=== PATIENT | female | born 1955 | race Caucasian/White ===

== ENCOUNTER 2023-01-29 06:15 | Day surgery (SDC) | payer OTHER ==
[2023-01-29] MEDS ORDERED: Ringers Lactate 1,000 ML IV ONE (06:48)
[2023-01-29] MEDS ORDERED: LIDOCAINE 1% MPF 5 ML VIAL ONE (08:23)
[2023-01-29] MEDS ORDERED: propofoL 200 MG/20 ML VIAL IV ONE (08:24)
[2023-01-29 11:26] VITALS: BP 117/72; TEMP 97.9; O2SAT 99
--- NOTE | 2023-01-30 13:32 | EKG ---
Test Date: 2023-01-29 Test Time: 07:53:30 [employer]: KRYSTIN MEASUREMENT RESULTS: Intervals: Rate: 91 MS: QRSD: 106 QT: 358 QTc: 440 [place]: P: MS: QRS: 245 T: 140 INTERPRETIVE STATEMENTS: Atrial fibrillation Right superior axis deviation ST & T wave abnormality, consider lateral ischemia or digitalis effect Abnormal ECG No previous ECG available for comparison Electronically Signed On 01-30-23 13:27:21 MYCOLOGIST by Lonnie Cadet
== END 2023-01-29 10:15 | disposition home or self-care (01) ==
LOC: OR 06:15
PROVIDERS: ATTEND Surgery
PROC: 0DBL8ZX Excision of Transverse Colon, Via Natural or Artificial Opening Endoscopic, Diagnostic (ICD-10-PCS; 2023-01-29)
PROC: 0DBM8ZX Excision of Descending Colon, Via Natural or Artificial Opening Endoscopic, Diagnostic (ICD-10-PCS; principal; 2023-01-29 08:30)
DX: K92.2 Gastrointestinal hemorrhage, unspecified (principal); D12.4 Benign neoplasm of descending colon; D12.3 Benign neoplasm of transverse colon; K57.30 Diverticulosis of large intestine without perforation or abscess without bleeding; D50.0 Iron deficiency anemia secondary to blood loss (chronic); K64.8 Other hemorrhoids; K64.4 Residual hemorrhoidal skin tags; I10 Essential (primary) hypertension; I48.91 Unspecified atrial fibrillation; F32.A Depression, unspecified; E66.9 Obesity, unspecified; Z68.31 Body mass index [BMI] 31.0-31.9, adult; Z79.01 Long term (current) use of anticoagulants
CPT/HCPCS: 93005; 36415; 80162; 88305; 45384; J2704; J2001; J7120

== ENCOUNTER → 2023-02-24 | Emergency (ER) | payer OTHER ==
--- OUTSIDE RECORDS SUMMARY | 2023-02-24 12:29 | XMS REPORT | Continuity of Care Document ---
Author Name Unknown Address [address] [place] [address] [facility] thconnect Address 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 Name Role Phone Mata Pan DO Primary Care Physician [phone] LUIS E DARBY Attending Clinician Unavailable Doctor Unassigned, [place] Attending Clinician U nicole Tinsley RN, Nini Macario Attending Clinician Unavailab JAMEEL Hayward Attending Clinician Unavailable JAMEEL LEWIS Attending Clinician Unavailable Drea REYES, Yehuda Attending Clinician [phone] Jaylan REYES, Krista Attending Clinician [phone] Diana Rodriguez MD Attending Clinician [phone] Alexandr Stoddard MD Attending Clinician [phone] ZEE POLANCO Attending Clinician Unavailabigail e (TECH), ANG-DB EMG/NCV TESTING Attending Clinici an Unavailable Zee Polanco MD Attending Clinician [phone] Jos Attending Clinician Unavailable DIANA RODRIGUEZ Admitting Clinician Unavailable Diana Rodriguez MD Admitting Clinician [phone] ZEE POLANCO Admitting Clinician Unavailabigail Arguello Admitting Clinician Unavailable Payers Payer Name Policy Type Policy Number Effective Date Expirati on Date Source OTHER CI [id number] MEDICARE PART A \\T\\ B [id number] 2021 00:00:00 [employer] TRADITIONAL [id number] 2021 00:00:00 Problems Condition Name Condition Details Condition Category Status Onset Date Resolution Date Last Treatment Date Treating Clinician Comments Source Hematochez ia Hematochez ia Disease Active 2022-02 0- 00:00: 00 [facility] Chronic diastolic heart failure Chronic diastolic heart failure Disease Active 3 00:00: 00 [facility] Benign hypertensi ve heart disease with heart failure(40 2.11) Benign hypertensi ve heart disease with heart failure(40 2.11) Disease Active 2020-02 2 00:00: 00 [facility] Generalize d anxiety disorder Generalize d anxiety disorder Disease Active 06 00:00: 00 [facility] Anemia of chronic disease Anemia of chronic disease Disease Active 03-12 00:00: 00 [facility] Aneurysm of thoracic aorta Aneurysm of thoracic aorta Disease Active 03-12 00:00: 00 [facility] Bicuspid aortic valve Bicuspid aortic valve Disease Active 03-12 00:00: 00 [facility] 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 Active 03-12 00:00: 00 [facility] Iron deficiency Iron deficiency Disease Active 03-12 00:00: 00 [facility] Mixed hyperlipid emia Mixed hyperlipid emia Disease Active 03-12 00:00: 00 [facility] Other persistent atrial fibrillati on Other persistent atrial fibrillati on Disease Active 03-12 00:00: 00 [facility] No known active problems No known active problems Disease [facility] Allergies, Adverse Reactions, Alerts Allergy Name Allergy Type Status Severity Reaction(s) Onset Date Inactive Date Treating Clinician Comments Source IODINE DRUG INGREDI Active Swelling 2020-02 00:00: 00 [facility] Iodine Propensi ty to adverse reaction s Active Swelling 2020-02 00:00: 00 [facility] Social History Social Habit Start Date Stop Date Quantity Comments [facility] 2022-12-07 00:00:00 2022-12-07 00:00:00 [facility] Sex Assigned At 1955 00:00:00 1955 00:00:00 [facility] Smoking Status Start Date Stop Date Source Tobacco smoking consumption unknown [facility] Medications Ordered Medication Name Filled Medication Name Start Date Stop Date Current Medication? Ordering Clinician Indication Dosage Frequency Signature (SIG) Comments Components Source rivaroxaban (XARELTO) tablet 20 mg 2022-02 14:00: 00 Yes 20mg 20 mg, Oral, DAILY, First dose on 12/10/22 at 0900, Until Discontinu ed, [facility] 81 mg 2022-02 14:00: 00 Yes 81mg 81 mg, Oral, DAILY, First dose on 12/10/22 at 0900, Until Discontinu ed, Routine [facility] rivaroxaban (XARELTO) tablet 20 mg 2022-02 14:00: 00 12-10 20:08 :32 No 20mg 20 mg, Oral, DAILY, First dose on 12/10/22 at 0900, Until Discontinu ed, Routine [facility] che[facility] 81 mg 2022-02 14:00: 00 12-10 20:08 :32 No 81mg 81 mg, Oral, DAILY, First dose on 12/10/22 at 0900, Until Discontinu ed, Routine [facility] aspirin 81 mg chewable tablet 2022-02 13:08: 30 Yes 81mg Take 1 tablet by mouth in the morning. [facility] rivaroxaban (XARELTO) 20 mg tablet 2022-02 13:08: 30 Yes 20mg Take 1 tablet by mouth in the morning. [facility] carvedilol (COREG ORAL) 2022-02 13:08: 30 Yes 20mg Take 20 mg by mouth in the morning and 20 mg in the evening. [facility] FA/mv,Ca,ir on,min/lyco pene/lut (MULTIVITAL ORAL) 2022-02 13:08: 30 Yes 1{tbl} Take 1 tablet by mouth in the morning. [facility] digoxin 250 mcg (0.25 mg) tablet 2022-02 13:08: 30 Yes .25mg Take 1 tablet by mouth in the morning. [facility] aspirin 81 mg chewable tablet 2022-02 13:08: 30 Yes 81mg Take 1 tablet by mouth in the morning. [facility] rivaroxaban (XARELTO) 20 mg tablet 2022-02 13:08: 30 Yes 20mg Take 1 tablet by mouth in the morning. [facility] carvedilol (COREG ORAL) 2022-02 13:08: 30 Yes 20mg Take 20 mg by mouth in the morning and 20 mg in the evening. [facility] FA/mv,Ca,ir on,min/lyco pene/lut (MULTIVITAL ORAL) 2022-02 13:08: 30 Yes 1{tbl} Take 1 tablet by mouth in the morning. [facility] digoxin 250 mcg (0.25 mg) tablet 2022-02 13:08: 30 Yes .25mg Take 1 tablet by mouth in the morning. [facility] aspirin 81 mg chewable tablet 2022-02 13:08: 30 Yes 81mg Take 1 tablet by mouth in the morning. [facility] rivaroxaban (XARELTO) 20 mg tablet 2022-02 13:08: 30 Yes 20mg Take 1 tablet by mouth in the morning. [facility] carvedilol (COREG ORAL) 2022-02 13:08: 30 Yes 20mg Take 20 mg by mouth in the morning and 20 mg in the evening. [facility] FA/mv,Ca,ir on,min/lyco pene/lut (MULTIVITAL ORAL) 2022-02 13:08: 30 Yes 1{tbl} Take 1 tablet by mouth in the morning. [facility] digoxin 250 mcg (0.25 mg) tablet 2022-02 13:08: 30 Yes .25mg Take 1 tablet by mouth in the morning. [facility] aspirin 81 mg chewable tablet 2022-02 13:08: 30 Yes 81mg Take 1 tablet by mouth in the morning. [facility] rivaroxaban (XARELTO) 20 mg tablet 2022-02 13:08: 30 Yes 20mg Take 1 tablet by mouth in the morning. [facility] carvedilol (COREG ORAL) 2022-02 13:08: 30 Yes 20mg Take 20 mg by mouth in the morning and 20 mg in the evening. [facility] FA/mv,Ca,ir on,min/lyco pene/lut (MULTIVITAL ORAL) 2022-02 13:08: 30 Yes 1{tbl} Take 1 tablet by mouth in the morning. [facility] digoxin 250 mcg (0.25 mg) tablet 2022-02 13:08: 30 Yes .25mg Take 1 tablet by mouth in the morning. [facility] aspirin 81 mg chewable tablet 2022-02 13:08: 30 Yes 81mg Take 1 tablet by mouth in the morning. [facility] rivaroxaban (XARELTO) 20 mg tablet 2022-02 13:08: 30 Yes 20mg Take 1 tablet by mouth in the morning. [facility] carvedilol (COREG ORAL) 2022-02 13:08: 30 Yes 20mg Take 20 mg by mouth in the morning and 20 mg in the evening. [facility] FA/mv,Ca,ir on,min/lyco pene/lut (MULTIVITAL ORAL) 2022-02 13:08: 30 Yes 1{tbl} Take 1 tablet by mouth in the morning. [facility] digoxin 250 mcg (0.25 mg) tablet 2022-02 13:08: 30 Yes .25mg Take 1 tablet by mouth in the morning. [facility] aspirin 81 mg chewable tablet 2022-02 13:08: 30 Yes 81mg Take 1 tablet by mouth in the morning. [facility] rivaroxaban (XARELTO) 20 mg tablet 2022-02 13:08: 30 Yes 20mg Take 1 tablet by mouth in the morning. [facility] carvedilol (COREG ORAL) 2022-02 13:08: 30 Yes 20mg Take 20 mg by mouth in the morning and 20 mg in the evening. [facility] FA/mv,Ca,ir on,min/lyco pene/lut (MULTIVITAL ORAL) 2022-02 13:08: 30 Yes 1{tbl} Take 1 tablet by mouth in the morning. [facility] digoxin 250 mcg (0.25 mg) tablet 2022-02 13:08: 30 Yes .25mg Take 1 tablet by mouth in the morning. [facility] aspirin 81 mg chewable tablet 2022-02 13:08: 30 Yes 81mg Take 1 tablet by mouth in the morning. [facility] rivaroxaban (XARELTO) 20 mg tablet 2022-02 13:08: 30 Yes 20mg Take 1 tablet by mouth in the morning. [facility] carvedilol (COREG ORAL) 2022-02 13:08: 30 Yes 20mg Take 20 mg by mouth in the morning and 20 mg in the evening. [facility] FA/mv,Ca,ir on,min/lyco pene/lut (MULTIVITAL ORAL) 2022-02 13:08: 30 Yes 1{tbl} Take 1 tablet by mouth in the morning. [facility] digoxin 250 mcg (0.25 mg) tablet 2022-02 13:08: 30 Yes .25mg Take 1 tablet by mouth in the morning. [facility] metoprolol tartrate (LOPRESSOR) tablet 12.5 mg 2022-02 01:00: 00 Yes 12.5mg 12.5 mg, Oral, Q12H, First dose on 12/09/22 at 2000, Until Discontinu ed, Routine [facility] metoprolol tartrate (LOPRESSOR) tablet 12.5 mg 2022-02 01:00: 00 12-10 20:08 :32 No 12.5mg 12.5 mg, Oral, Q12H, First dose on 12/09/22 at 2000, Until Discontinu ed, Routine [facility] metoprolol tartrate 25 mg tablet 2022-02 015 00:00: 00 Yes [id number] 12.5mg Take 0.5 tablets by mouth every 12 (twelve) hours. [facility] metoprolol tartrate 25 mg tablet 2022-02 00:00: 00 Yes [id number] 12.5mg Take 0.5 tablets by mouth every 12 (twelve) hours. [facility] metoprolol tartrate 25 mg tablet 2022-02 00:00: 00 Yes [id number] 12.5mg Take 0.5 tablets by mouth every 12 (twelve) hours. [facility] metoprolol tartrate 25 mg tablet 2022-02 00:00: 00 Yes [id number] 12.5mg Take 0.5 tablets by mouth every 12 (twelve) hours. [facility] metoprolol tartrate 25 mg tablet 2022-02 00:00: 00 Yes [id number] 12.5mg Take 0.5 tablets by mouth every 12 (twelve) hours. [facility] metoprolol tartrate 25 mg tablet 2022-02 00:00: 00 Yes [id number] 12.5mg Take 0.5 tablets by mouth every 12 (twelve) hours. [facility] metoprolol tartrate 25 mg tablet 2022-02 00:00: 00 Yes [id number] 12.5mg Take 0.5 tablets by mouth every 12 (twelve) hours. [facility] iron sucrose (VENOFER) 300 mg in NaCl 0.9% (NS) 250 mL infusion 2022-02 19:00: 00 12-09 20:53 :00 No 300mg 300 mg, IV Infusion, ONCE, Administer over 1.5 Hours, On 12/09/22 at 1400, For 1 dose [facility] simethicone (GAS RELIEF (SIMETHICON E)) 40 mg/0.6 mL drops 2022-02 19:19: 00 12-08 19:56 :51 No PRN, Starting on Sun12/08/22 at 1419, Until Sun12/08/22 at 1456, Routine, Intra-op [facility] pantoprazol e (PROTONIX) injection 40 mg 2022-02 01:00: 00 Yes 40mg 40 mg, Slow IV Push, Q12H, First dose on Sun12/07/22 at 1999, Until Discontinu ed [facility] pantoprazol e (PROTONIX) injection 40 mg 2022-02 01:00: 00 12-10 20:08 :32 No 40mg 40 mg, Slow IV Push, Q12H, First dose on Sun12/07/22 at 1999, Until Discontinu ed [facility] bisacodyL (DULCOLAX) tablet 10 mg 2022-02 21:38: 38 Yes 10mg 10 mg, Oral, PRE-PROCED URE ONCE, 1 dose, Starting on Sun12/07/22 at 1638, Until Discontinu ed, Routine, Bowel Prep, Colonoscop y [facility] ondansetron (ZOFRAN (PF)) injection 4 mg 2022-02 21:38: 38 Yes 4mg 4 mg, Slow IV Push, Q6HPRN, Starting on Sun12/07/22 at 1638, Until Discontinu ed, Routine, Nausea and Vomiting (N/V) [facility] peg-electro lyte soln (GOLYTELY) 236-22.74-6 .74 -5.86 gram solution 4,000 mL 2022-02 21:38: 38 Yes 4000mL 4,000 mL, Oral, PRN - SEE INSTRUCTIO NS, Starting on Sun12/07/22 at 1638, Until Discontinu ed, Routine, Bowel Prep, colonoscop y [facility] peg-electro lyte soln (GOLYTELY) 236-22.74-6 .74 -5.86 gram solution 4,000 mL 2022-02 21:38: 38 12-10 20:08 :32 No 4000mL 4,000 mL, Oral, PRN - SEE INSTRUCTIO NS, Starting on Sun12/07/22 at 1638, Until 12/10/22 at 1508, Routine, Bowel Prep, colonoscop y [facility] bisacodyL (DULCOLAX) tablet 10 mg 2022-02 21:38: 38 12-10 20:08 :32 No 10mg 10 mg, Oral, PRE-PROCED URE ONCE, 1 dose, Starting on Sun12/07/22 at 1638, Until 12/10/22 at 1508, Routine, Bowel Prep, Colonoscop y [facility] ondansetron (ZOFRAN (PF)) injection 4 mg 2022-02 21:38: 38 12-10 20:08 :32 No 4mg 4 mg, Slow IV Push, Q6HPRN, Starting on Johanna 12/07/22 at 1638, Until 12/10/22 at 1508, Routine, Nausea and Vomiting (N/V) [facility] bisacodyL (DULCOLAX) tablet 10 mg 2022-02 21:38: 38 12-07 22:10 :00 No 10mg 10 mg, Oral, PRE-PROCED URE ONCE, 1 dose, Starting on Sun12/07/22 at 1638, Until Discontinu ed, Routine, Bowel Prep, Colonoscop y [facility] acetaminoph en (TYLENOL) tablet 325 mg 2022-02 17:48: 16 Yes 325mg 325 mg, Oral, Q6HPRN, Starting on Sun12/07/22 at 1248, Until Discontinu ed, Routine, Pain (scale 1-3), Pain (scale 4-6) [facility] acetaminoph en (TYLENOL) tablet 325 mg 2022-02 17:48: 16 12-10 20:08 :32 No 325mg 325 mg, Oral, Q6HPRN, Starting on Johanna 12/07/22 at 1248, Until 12/10/22 at 1508, Routine, Pain (scale 1-3), Pain (scale 4-6) [facility] sulfur hexafluorid e microsphr (LUMASON) injection 5 mL 2022-02 16:00: 00 12-07 16:00 :00 No [id number] 4102 5mL 5 mL, Intravenou s, ONCE, 1 dose, On Sun12/07/22 at 1100, Routine
science faculty member approving Restricted medication : MANDY WERNER [facility] escitalopra m oxalate (LEXAPRO) tablet 20 mg 2022-02 14:00: 00 Yes [id number] 20mg 20 mg, Oral, DAILY, First dose on Sun12/07/22 at 0900, Until Discontinu ed, Routine [facility] escitalopra m oxalate (LEXAPRO) tablet 20 mg 2022-02 14:00: 00 12-10 20:08 :32 No [id number] 20mg 20 mg, Oral, DAILY, First dose on Sun12/07/22 at 0900, Until Discontinu ed, Routine [facility] digoxin (LANOXIN) tablet 250 mcg 2022-02 14:00: 00 12-07 17:44 :08 No [id number] 250ug 250 mcg, Oral, DAILY, First dose on Sun12/07/22 at 0900, Until Discontinu ed, Routine [facility] iron sucrose (VENOFER) 300 mg in NaCl 0.9% (NS) 250 mL infusion 2022-02 13:15: 00 12-07 16:06 :00 No 300mg 300 mg, IV Infusion, ONCE, Administer over 1.5 Hours, On Sun12/07/22 at 0815, For 1 dose [facility] iopamidol (ISOVUE 370-500 mL) injection 100 mL 2022-02 00:45: 00 12-07 00:45 :00 No [id number] 4102 100mL 100 mL, Intravenou s, ONCE, 1 dose, On Sun12/06/22 at 1945, Routine [facility] lactated ringers IV infusion 1,000 mL 2022-02 00:00: 00 12-07 00:48 :31 No [id number] 1000mL at 75 mL/hr, 1,000 mL, IV Infusion, CONTINUOUS , Starting on Sun12/06/22 at 1900, Until Sun12/06/22 at 1948, Routine [facility] hydrocortis one sod succ (CORTEF) injection 200 mg 2022-02 23:15: 00 12-06 22:25 :00 No [id number] 200mg 200 mg, Intravenou s, ONCE, 1 dose, On Sun12/06/22 at 1815, 4 mL [facility] pantoprazol e (PROTONIX) 80 mg in NaCl 0.9%(NS) 500 mL IV infusion (CNR) 2022-02 23:00: 00 12-07 18:32 :45 No 8mg/h 8 mg/hr (50 mL/hr), IV Infusion, CONTINUOUS , Starting on Sun12/06/22 at 1800 [facility] pantoprazol e (PROTONIX) injection 80 mg 2022-02 22:30: 00 12-06 22:07 :00 No 80mg 80 mg, Slow IV Push, ONCE, 1 dose, On Sun12/06/22 at 1730 [facility] diphenhydrA MINE (BENADRYL) injection 50 mg 2022-02 22:15: 00 12-06 22:25 :00 No [id number] 50mg 50 mg, Intravenou s, ONCE, 1 dose, On Sun12/06/22 at 1715, Routine [facility] hydrocortis one sod succ (CORTEF) 200 mg in NaCl 0.9% (NS) piggyback 2022-02 18:06: 00 12-06 19:07 :00 No 200mg 200 mg, Intravenou s, ONCE, 1 dose, On Sun12/06/22 at 1315, Administer over 30 Minutes, 200 mL [facility] acetaminoph en (TYLENOL) tablet 650 mg 2022-02 16:45: 00 12-06 16:50 :00 No 650mg 650 mg, Oral, ONCE, 1 dose, On Sun12/06/22 at 1145, HERMINIA [facility] NaCl 0.9% (NS) IV Line Priming and Flushing Fluid Only 250 mL 2022-02 15:00: 00 12-06 16:26 :00 No 250mL 250 mL, IV Infusion, ONCE, 1 dose, On Sun12/06/22 at 1000, 250 mL [facility] digoxin 125 mcg (0.125 mg) tablet 2020-02 00:00: 00 Yes [facility] lisinopriL 5 mg tablet 2020-02 00:00: 00 Yes 10mg Take 2 tablets by mouth in the morning. [facility] lisinopriL 5 mg tablet 2020-02 00:00: 00 Yes [facility] digoxin 125 mcg (0.125 mg) tablet 2020-02 00:00: 00 Yes [facility] lisinopriL 5 mg tablet 2020-02 00:00: 00 Yes 10mg Take 2 tablets by mouth in the morning. [facility] lisinopriL 5 mg tablet 2020-02 00:00: 00 Yes 10mg Take 2 tablets by mouth in the morning. [facility] lisinopriL 5 mg tablet 2020-02 00:00: 00 Yes [facility] lisinopriL 5 mg tablet 2020-02 00:00: 00 Yes 10mg Take 2 tablets by mouth in the morning. [facility] lisinopriL 5 mg tablet 2020-02 00:00: 00 Yes 10mg Take 2 tablets by mouth in the morning. [facility] lisinopriL 5 mg tablet 2020-02 00:00: 00 Yes 10mg Take 2 tablets by mouth in the morning. [facility] lisinopriL 5 mg tablet 2020-02 00:00: 00 Yes 10mg Take 2 tablets by mouth in the morning. [facility] digoxin 125 mcg (0.125 mg) tablet 2020-02 00:00: 00 12-06 00:00 :00 No 125ug 1 tablet. [facility] digoxin 125 mcg (0.125 mg) tablet 2020-02 00:00: 00 12-06 00:00 :00 No 125ug 1 tablet. [facility] furosemide 20 mg tablet 2020-02 00:00: 00 Yes 20mg Take 1 tablet by mouth in the morning. [facility] furosemide 20 mg tablet 2020-02 00:00: 00 Yes [facility] furosemide 20 mg tablet 2020-02 00:00: 00 Yes 20mg Take 1 tablet by mouth in the morning. [facility] furosemide 20 mg tablet 2020-02 00:00: 00 Yes [facility] furosemide 20 mg tablet 2020-02 00:00: 00 Yes 20mg Take 1 tablet by mouth in the morning. [facility] furosemide 20 mg tablet 2020-02 00:00: 00 Yes 20mg Take 1 tablet by mouth in the morning. [facility] furosemide 20 mg tablet 2020-02 00:00: 00 Yes 20mg Take 1 tablet by mouth in the morning. [facility] furosemide 20 mg tablet 2020-02 00:00: 00 Yes 20mg Take 1 tablet by mouth in the morning. [facility] furosemide 20 mg tablet 2020-02 00:00: 00 Yes 20mg Take 1 tablet by mouth in the morning. [facility] escitalopra m oxalate 10 mg tablet 2020-02 0 00:00: 00 Yes 20mg Take 2 tablets by mouth in the morning. [facility] escitalopra m oxalate 10 mg tablet 2020-02 0 00:00: 00 Yes [facility] escitalopra m oxalate 10 mg tablet 2020-02 004 00:00: 00 Yes [facility] escitalopra m oxalate 10 mg tablet 2020-02 0 00:00: 00 Yes 20mg Take 2 tablets by mouth in the morning. [facility] escitalopra m oxalate 10 mg tablet 2020-02 0 00:00: 00 Yes 20mg Take 2 tablets by mouth in the morning. [facility] escitalopra m oxalate 10 mg tablet 2020-02 0 00:00: 00 Yes 20mg Take 2 tablets by mouth in the morning. [facility] escitalopra m oxalate 10 mg tablet 2020-02 0 00:00: 00 Yes 20mg Take 2 tablets by mouth in the morning. [facility] escitalopra m oxalate 10 mg tablet 2020-02 0 00:00: 00 Yes 20mg Take 2 tablets by mouth in the morning. [facility] escitalopra m oxalate 10 mg tablet 2020-02 0 00:00: 00 Yes 20mg Take 2 tablets by mouth in the morning. [facility] Vital Signs Vital Name Observation Time Observation Value Comments S ource Systolic blood pressure 2022-12-10 16:48:00 138 mm[Hg] [facility] Diastolic blood pressure 2022-12-10 16:48:00 72 mm[Hg] [facility] Heart rate 2022-12-10 16:48:00 76 /min [facility] Body temperature 2022-12-10 16:48:00 36.78 Macy [facility] Respiratory rate 2022-12-10 16:48:00 18 /min [facility] Oxygen saturation in Arterial blood by Pulse oximetry 2022-12-10 16:48:00 95 /min [facility] Body height 2022-12-06 20:33:00 170.2 cm [facility] Body weight 2022-12-06 20:33:00 95.5 kg [facility] BMI 2022-12-06 20:33:00 32.97 kg/m2 [facility] Systolic blood pressure 2022-12-08 20:05:00 115 mm[Hg] [facility] Diastolic blood pressure 2022-12-08 20:05:00 57 mm[Hg] [facility] Heart rate 2022-12-08 20:05:00 70 /min [facility] Respiratory rate 2022-12-08 20:05:00 18 /min [facility] Oxygen saturation in Arterial blood by Pulse oximetry 2022-12-08 20:05:00 98 /min [facility] Body temperature 2022-12-08 19:44:00 36.78 Macy [facility] Body height 2022-12-06 20:33:00 170.2 cm [facility] Body weight 2022-12-06 20:33:00 95.5 kg [facility] BMI 2022-12-06 20:33:00 32.97 kg/m2 [facility] Systolic blood pressure 2021-01-27 14:57:00 122 mm[Hg] [facility] Diastolic blood pressure 2021-01-27 14:57:00 76 mm[Hg] [facility] Heart rate 2021-01-27 14:57:00 57 /[facility] 2021-01-27 14:57:00 16 /min [facility] Body height 2021-01-27 14:57:00 170.2 cm [facility] Body weight 2021-01-27 14:57:00 102.059 kg [facility] BMI 2021-01-27 14:57:00 35.24 kg/m2 [facility] Procedures Procedure Date / Time Performed Performing Clinician Source AUTHORIZATION FOR RELEASE OF PHI 2022-12 06:01:00 Doctor Unassigned, [place] [facility] BASIC METABOLIC PANEL (NA, K , CL, CO2, GLUCOSE, BUN, CREATININE, CA) 2022-12-10 15:24:00 Jameel Lewis [facility] CBC WITH DIFF 2022-12-10 15:24[facility] (NA, K , CL, CO2, GLUCOSE, BUN, CREATININE, CA) 2022-12-10 15:24:00 [facility] 2022-12-10 15:24:00 [facility] 2022-12-09 11:50:00 Janine Ferraro [facility] CBC WITH DIFF 2022-12-09 11:50:00 Janine Ferraro [facility] ESOPHAGOGASTRODUODENOSCOPY 2022-12-08 18:36:00 Alexandr Stoddard [facility] COLONOSCOPY 2022-12-08 18:36:00 Alexandr Stoddard [facility] COLONOSCOPY (ENDO) 2022-12-08 18:34:44 Mata Pan [facility] COLONOSCOPY (ENDO) 2022-12-08 18:34:44 Mata Pan [facility] EGD (ENDO) 2022-12-08 18:33:47 Mata Pan [facility] EGD (ENDO) 2022-12-08 18:33:47 Mata Pan [facility] CBC WITHOUT DIFF 2022-12-08 09:19:00 Dereck [facility] CBC WITHOUT DIFF 2022-12-08 09:19:00 Dereck [facility] CBC WITHOUT DIFF 2022-12-08 01:15:00 [facility]reck [facility] [facility]FF 2022-12-08 01:15:00 [facility] CBC WITHOUT DIFF 2022-12-07 18:38:00 [facility] CBC WITHOUT DIFF 2022-12-07 18:38:00 [facility] TRANSTHORACIC ECHO (TTE) COM PLETE W/ CONTRAST 2022-12-07 16:18:00 [facility] TRANSTHORACIC ECHO (TTE) COM PLETE W/ CONTRAST 2022-12-07 16:18:00 [facility] CBC WITHOUT DIFF 2022-12-07 13:34:00 [facility] CBC WITHOUT DIFF 2022-12-07 13:34:00 [facility] PREPARE PACKED RBC 2022-12-07 10:23:39 [facility] PREPARE PACKED RBC 2022-12-07 10:23:39 Violeta Harden [facility] PHOSPHORUS 2022-12-07 09:29:00 [facility] MAGNESIUM 2022-12-07 09:29:00 [facility] THYROID STIMULATING HORMONE 2022-12-07 09:29:00 [facility] HEPATIC FUNCTION PANEL (8007 6) (ALB,T.PRO,BILI T,BU/BC,ALT,AST,ALK PHOS) 2022-12-07 09:29:00 [facility] BASIC METABOLIC PANEL (NA, K , CL, CO2, GLUCOSE, BUN, CREATININE, CA) 2022-12-07 09:29:00 [facility] DIGOXIN 2022-12-07 09:29:00 [facility] CBC WITH DIFF 2022-12-07 09:29[facility] 2022-12-07 09:29:00 [facility] ACTIVATED PARTIAL THRMPLAS MIKE 2022-11-26 2 09:29:00 [facility] PHOSPHORUS 2022-12-07 09:29:00 [facility] MAGNESIUM 2022-12-07 09:29:00 [facility] THYROID STIMULATING HORMONE 2022-12-07 09:29:00 [facility] HEPATIC FUNCTION PANEL (8007 6) (ALB,T.PRO,BILI T,BU/BC,ALT,AST,ALK PHOS) 2022-12-07 09:29:00 [facility] BASIC METABOLIC PANEL (NA, K , CL, CO2, GLUCOSE, BUN, CREATININE, CA) 2022-12-07 09:29:00 [facility] DIGOXIN 2022-12-07 09:29:00 [facility] CBC WITH DIFF 2022-12-07 09:29:00 [facility] PR[facility] / INR 2022-12-07 09:29:00 [facility] ACTIVATED PARTIAL THRMPLAS MIKE 2022-11-26 2 09:29:00 [facility] TRANSFUSE PACKED RBC 2022-12-07 04:15:00 [facility] TRANSFUSE PACKED RBC 2022-12-07 04:15:00 [facility] PREPARE PACKED RBC 2022-12-07 04:09:47 [facility] PREPARE PACKED RBC 2022-12-07 04:09:47 Michael Diana [facility] CBC WITHOUT DIFF 2022-12-07 03:46:00 [facility] CBC WITHOUT DIFF 2022-12-07 03:46:[address] [facility] TRANSFUSE PACKED RBC 2022-12-07 01:01:00 [facility] TRANSFUSE PACKED RBC 2022-12-07 01:01:[address] [facility] [address] ANGIOGRAM CHEST 2022-12-06 23:47:[address] [facility] [address] ABDOMEN PELVIS W WO CONTRAST 23:47:[address] [facility] [address] ANGIOGRAM CHEST 2022-12-06 23:47:[address] [facility] [address] ABDOMEN PELVIS W WO CONTRAST 23:47:24 [facility] POCT GLUCOSE (AUTOMATED) 2022-12-06 21:55:00 D[facility] POCT GLUCOSE (AUTOMATED) 2022-12-06 21:55:00 Yehuda Shepard [facility] HB ECG ROUTINE & RHYTHM STRIP 2022-12-06 21:32:55 [facility] LACTIC ACID WHOLE BLOOD 2022-12-06 20:28:00 [facility] MRSA / MSSA SCREEN BY JULIANA HERNANDEZ 2022-11 20:28:00 [facility] LACTIC ACID WHOLE BLOOD 2022-12-06 20:28:00 [facility] MRSA / MSSA SCREEN BY PCRJULIANA 2022-11 20:28:00 [facility] FERRITIN SERUM 2022-12-06 20:27:00 Janine Ferraro [facility] TROPONIN I 2022-12-06 20:27:00 [facility] CBC WITH DIFF 2022-12-06 20:27:00 [facility] PROTHROMBIN TIME / INR 2022-12-06 20:27:00 [facility] ACTIVATED PARTIAL THRMPLAS MIKE 2022-11-26 1 20:27:00 [facility] FIBRINOGEN 2022-12-06 20:27:00 [facility] HB ABO GROUPING 2022-12-06 20:27:00 [facility] N-TERMINAL PRO-BNP 2022-12-06 20:27:00 [facility] FERRITIN SERUM 2022-12-06 20:27:00 Janine Ferraro [facility] TROPONIN I 2022-12-06 20:27:00 [facility] CBC WITH DIFF 2022-12-06 20:27:00 [facility] PROTHROMBIN TIME / INR 2022-12-06 20:27:00 [facility] ACTIVATED PARTIAL THRMPLAS MIKE 2022-11-26 1 20:27:00 [facility] FIBRINOGEN 2022-12-06 20:27:00 [facility] HB ABO GROUPING 2022-12-06 20:27:00 [facility] N-TERMINAL PRO-BNP 2022-12-06 20:27:00 [facility] CRITICAL CARE 2022-12-06 17:21:03 [facility] 2022-12-06 17:21:03 [facility] TRANSFUSE PACKED RBC 2022-12-06 16:20:00 [facility] TRANSFUSE PACKED RBC 2022-12-06 16:20[facility] 2022-12-06 16:03:52 [facility] PREPARE PACKED RBC 2022-12-06 16:03:52 [facility] (LAB ONLY) 2022-12-06 14:44:00 [facility] ABORH CONFIRMATION (LAB ONLY) 2022-12-06 14:44:00 [facility] HB ECG ROUTINE & RHYTHM STRIP 2022-12-06 13:49:26 [facility] HB ECG ROUTINE & RHYTHM STRIP 2022-12-06 13:49:26 [facility] LIPASE 2022-12-06 13:37:00 [facility] COMP. METABOLIC PANEL (11131) 2022-12-06 13:37:00 [facility] CBC WITH DIFF 2022-12-06 13:37:00 [facility] PROTHROMBIN TIME / INR 2022-12-06 13:37:00 [facility] ACTIVATED PARTIAL THRMPLAS MIKE 2022-11-26 1 13:37:00 [facility] HB ABO GROUPING 2022-12-06 13:37:00 [facility] LIPASE 2022-12-06 13:37:00 [facility] COMP. METABOLIC PANEL (31410) 2022-12-06 13:37:00 [facility] CBC WITH DIFF 2022-12-06 13:37:00 [facility] PROTHROMBIN TIME / INR 2022-12-06 13:37:00 [facility] ACTIVATED PARTIAL THRMPLAS MIKE 2022-11-26 1 13:37:00 [facility] HB ABO GROUPING 2022-12-06 13:37:00 Krista Tian [facility] NOTICE OF PRIVACY PRACTICES 2022-12-06 13:14:45 Doctor Unassigned, [place] [facility] NOTICE OF PRIVACY PRACTICES 2022-12-06 13:14:45 Doctor Unassigned, [place] [facility] CONSENT/REFUSAL FOR DIAGNOSI S AND TREATMENT 2022-12-06 13:13:21 Doctor Unassigned, [place] [facility] CONSENT/REFUSAL FOR DIAGNOSI S AND TREATMENT 2022-12-06 13:13:21 Doctor Unassigned, [place] [facility] HOSPITAL ADMISSION 2022-12-06 05:01:00 Doctor Unassigned, [place] [facility] ADMISSION 2022-12-06 05:01:00 Doctor Unassigned, [place] [facility] Encounters Start Date/Time End Date/Time Encounter Type Admission Type Attending [facility] Care Department Encounter ID Source 2023-02-08 15:58:00 Out[facility] [id number] [facility] 2022-12-20 16:23:00 Outpatient DARBY, LUIS E [facility] [id number] [facility] 2022-06-17 17:24:35 Outpatient IBNS IBNS [id number] - [id number] [facility] 2021-12-26 19:02:06 Outpatient IBNS IBNS [id number] - [id number] [facility] 2021-05-27 08:40:04 Outpatient IBNS IBNS [id number] - [id number] [facility] 2021-05-26 14:50:01 Outpatient IBNS IBNS [id number] - [id number] [facility] 2021-03-29 12:28:18 Outpatient IBNS IBNS [id number] - [id number] [facility] 2023-01-01 00:00:00 2023-01-01 00:00:00 Orders Only Doctor Unassigned, [place] [facility] [id number] 350.1.13.10 4.2.7.2.686 [id number] [facility] 2022-12-13 00:00:00 2022-12-13 00:00:00 Patient Secure Msg Doctor Unassigned, [place] [facility] 66. com [facility] [id number] 350.1.13.10 4.2.7.2.686 [id number] [facility] 2022-12-12 00:00:00 2022-12-12 00:00:00 Transition of Care Tinsley Nini LU 1.84.114 350.1.13.10 4.2.7.2.686 [id number] [facility] 2022-12-11 00:00:00 2022-12-11 00:00:00 Patient Secure Msg Doctor Unassigned, [place] [facility] 66. com [facility] [id number] 350.1.13.10 4.2.7.2.686 [id number] [facility] 2022-12-06 08:22:00 2022-12-10 12:50:00 Inpatient X JAMEEL LEWIS, [facility] [id number] [facility] 2022-12-06 08:22:00 2022-12-10 12:50:00 Hospital Encounter Yehuda Shepard , Krista Rodriguez, Diana Lewis [facility] ([facility]) 1.84.114 350.1.13.10 4.2.7.2.686 [id number] [facility] 2022-12-08 13:57:00 2022-12-08 15:20:00 Surgery Alexandr Stoddard [facility] ([facility]) 1.20.114 350.1.13.10 4.2.7.2.686 [id number] [facility] 2021-04-18 08:16:21 2021-04-18 23:59:00 Outpatient R FLAQUITA POLANCOIG [facility] [id number] [facility] 2021-04-18 08:30:00 2021-04-18 08:30:00 Outpatient MICHELLE Martinez (TECH) [facility] [id number] [facility] 2021-01-27 09:10:00 2021-01-27 23:59:00 Outpatient R ZEE POLANCO [facility] [id number] [facility] 2021-01-27 08:42:04 2021-01-27 09:43:05 Office Visit Zee Polanco Cassandra [facility] [id number] 350.1.13.10 4.2.7.2.686 [id number] [facility] 2020-12-30 09:30:00 2020-12-30 09:30:00 Outpatient Juan ZEE PLOANCO [facility] [id number] [facility] 2020-04-26 10:50:00 2020-04-26 10:50:00 Outpatient Jos MMG MMG [id number] [facility] Results Test Description Test Time Test Comments Results Result Co mments Source [facility]2022-12-07 16:48:36* Test Item Value Reference Range Interpretation Comme nts Height (test code = 9947780138) 67 in Weight (test code = 5289188451) 210 lbs Systolic BP (test code = 3703520107) 147 mmHg Diastolic BP (test code = 3305234611) 63 mmHg Heart Rate (test code = 3930651737) 61 bpm BSA (test code = 3943566711) 2.06 m2 Ao root diam (test code = 7537762709) 3.60 cm Aortic root (test code = 7831183451) 3.6 cm Ao root annulus (test code = 5838493116) 3.6 cm LA size (test code = 2455436092) 5.1 cm LVOT diameter (test code = 1685236789) 2.03 cm LVOT area (test code = 7756290207) 3.20 cm2 TR Peak Indra (test code = 2561770796) 270.1 cm/s Triscuspid Valve Regurgitation Peak Gradient (test code = 3595288266) 29.8 mmHg LAV(MOD-sp4) (test code = 5723299232) 83.30 mL MV valve area p 1/2 method (test code = 3472378267) 4.20 cm2 MV dec slope (test code = 9312763613) 597.40 cm/s2 MV P1/2t max indra (test code = 1270743690) 105.80 cm/s MV Peak E Indra (test code = 5935473165) 105.8 cm/s MV Prop V (test code = 4562483348) 72.70 cm/s Tapse (test code = 8580159233) 3.2 cm MV E/e' septal (test code = 6345790585) 12.9 cm/s LVOT stroke volume (test code = 5475866528) 71.50 cm3 LVOT peak indra (test code = 4320649224) 101.1 cm/s LVOT mn grad (test code = 6768224320) 2.0 mmHg AV LVOT peak gradient (test code = 0301512402) 4.1 mmHg LVOT peak VTI (test code = 7223360778) 22.2 cm LV V1 mean (test code = 2558051542) 66.10 cm/s Aortic valve mean velocity (test code = 6620108004) 101.2 cm/s Ao peak indra (test code = 5708853261) 150.7 cm/s Ao VTI (test code = 4450833143) 28.6 cm AV area by cont VTI (test code = 5348814706) 2.5 cm2 AV area peak indra (test code = 0574519868) 2.2 cm2 Ao max PG (test code = 6385099458) 9.10 mm[Hg] AV peak gradient (test code = 2095638183) 9.1 mmHg AV valve area (test code = 2185638005) 2.50 cm2 AV mean gradient (test code = 2257543913) 4.7 mmHg Left Ventricular Cardiac Output (test code = 0880666) 5.2 L/min Aortic HR (test code = 7113831548) 72.80 BPM LA Volume Index (BP) (test code = 1775738455) 44.8 mL/m2 LA volume (BP) (test code = 5641156933) 92.6 mL LAV(MOD-sp2) (test code = 5019224536) 72.80 mL IVC Diam Exp(MM) (test code = 8288342391) 3.00 cm IVC Diam Ins(MM) (test code = 8012292637) 1.65 cm LVIDD (test code = 5045187599) 6.00 cm Left Ventricular End Diastolic Volume by Teichholz Method (test code = 3828595) 177.4 mL IVS (test code = 3704597757) 0.85 cm Interventricular Septum Diastolic Thickness by 2D (test code = 4852026) 0.85 cm LVPWD (test code = 5486530978) 0.90 cm PW (test code = 2569406258) 0.90 cm 0.6-1.1 EF(Teich) (test code = 7809251385) 59.20 % LVIDS (test code = 0461129943) 4.10 cm Left Ventricular End Systolic Volume by Teichholz Method (test code = 3579906) 72.4 mL FS (test code = 7675105778) 32 % EF - 2D (test code = 41099619) 59.20 % Radiology Study observation (narrative) (test code = 35309-1) AQUILINO (test code = AQUILINO) ?Left?Ventricle: Left ventricle size is normal. Normal wall thickness. Mildly increased ventricular mass. There is eccentric hypertrophy. No regional wall motion abnormalities. Normal systolic function with a visually estimated EF of 60 - 65%. Diastolic dysfunction. ?Right?Ventricle: Right ventricle is mildly dilated. Normal systolic function. ?Left?Atrium: Left atrium is moderately dilated. Left atrium volume index is 44.8 mL/m2. ?Tricuspid?Valve: Tricuspid valve structure is normal. Trace transvalvular regurgitation. Right ventricular systolic pressure is 40-45 mmHg. ?Aortic?Valve: Not well visualized. Possible bioprosthetic valve vs calcified annulus. Moderately calcified cusps. No transvalvular regurgitation. No hemodynamically significant . AV mean gradient is 4.7 mmHg. AV peak velocity is 150.7 cm/s. ?IVC/SVC: IVC diameter is greater than 21 mm and decreases less than 50% during inspiration; therefore the estimated right atrial pressure is elevated (~15 mmHg). Left VentricleLeft ventricle size is normal. Normal wall thickness. Mildly increased ventricular mass. There is eccentric hypertrophy. No regional wall motion abnormalities. Normal systolic function with a visually estimated EF of 60 - 65%. Diastolic dysfunction.Right VentricleRight ventricle is mildly dilated. Normal systolic function.Left AtriumLeft atrium is moderately dilated. Left atrium volume index is 44.8 mL/m2.Right AtriumRight atrium size is normal.IVC/SVCIVC diameter is greater than 21 mm and decreases less than 50% during inspiration; therefore the estimated right atrial pressure is elevated (~15 mmHg). IVC shows systolic flow reversal.Mitral ValveMitral valve is normal in structure and function.Tricuspid ValveTricuspid valve structure is normal. Trace transvalvular regurgitation. Right ventricular systolic pressure is 40-45 mmHg.Aortic ValveNot well visualized. Possible bioprosthetic valve vs calcified annulus. Moderately calcified cusps. No transvalvular regurgitation. No hemodynamically significant . AV mean gradient is 4.7 mmHg. AV peak velocity is 150.7 cm/s.Pulmonic ValveNot well visualized.Ascending AortaNormal sized aorta.PericardiumThe pericardium is normal.Study DetailsStudy quality was adequate. A complete echocardiogram was performed using 2D, color flow Doppler and spectral Doppler. The apical, parasternal, subcostal and suprasternal views were obtained. 5 mL of Lumason ultrasound enhancing agent used. [facility]2023-10-12 16:47:06* Test Item Value Reference Range Interpretation Comme [facility] DIGOXIN (test code = 6139998522) 0.8 ng/mL 0.8-1.6 AQUILINO (test code = AQUILINO) Arrythmias: ?1.5 - 2.0 ng/mLToxic Range: ? Greater than or equal to 2.4 ng/mL Lab Interpretation (test code = 10875-8) Normal [facility]2023-10-12 16:47:06* Test Item Value Reference Range Interpretation Comme [facility] DIGOXIN (test code = 7869843048) 0.8 ng/mL 0.8-1.6 AQUILINO (test code = AQUILINO) Arrythmias: ?1.5 - 2.0 ng/mLToxic Range: ? Greater than or equal to 2.4 ng/mL Lab Interpretation (test code = 01038-4) Normal [facility] WITHOUT [id number] 13:46:26* Test Item Value Reference Range Interpretation Comme nts WBC (test code = 6690-2) 6.74 See_Comment [Automated message] The system which generated this result transmitted reference range: 4.30 - 11.10 10*3/?L. The reference range was not used to interpret this result as normal/abnormal. RBC (test code = 789-8) 2.92 See_Comment L [Automated message] The system which generated this result transmitted reference range: 3.93 - 5.25 10*6/?L. The reference range was not used to interpret this result as normal/abnormal. HGB (test code = 718-7) 7.7 g/dL 11.6-15.0 L HCT (test code = 4544-3) 24.2 % 35.7-45.2 L MCH (test code = 785-6) 26.4 pg 25.9-32.8 MCV (test code = 787-2) 82.9 fL 80.6-95.5 MCHC (test code = 786-4) 31.8 g/dL 31.6-35.1 PLT (test code = 777-3) 220 See_Comment [Automated message] The system which generated this result transmitted reference range: 166 - 358 10*3/?L. The reference range was not used to interpret this result as normal/abnormal. MPV (test code = 82514-6) 10.2 fL 9.5-12.9 RDW-CV (test code = 788-0) 14.7 % 12.0-15.5 RDW-SD (test code = 13741-4) 44.5 fL 39.0-49.9 NRBC x10^3 (test code = 5560152173) See_Comment [Automated messa ge] The system which generated this result transmitted reference range: 10*3/?L. The reference range was not used to interpret this result as normal/abnormal. NRBC/100 WBC (test code = 0464248358) 0.0 See_Comment [Automated messa ge] The system which generated this result transmitted reference range: 0.0 - 10.0 /100 WBCs. The reference range was not used to interpret this result as normal/abnormal. IPF % (test code = 0856395133) Lab Interpretation (test code = 44027-7) Abnormal [facility] WITHOUT [id number] 13:46:26* Test Item Value Reference Range Interpretation Comme nts WBC (test code = 6690-2) 6.74 See_Comment [Automated message] The system which generated this result transmitted reference range: 4.30 - 11.10 10*3/?L. The reference range was not used to interpret this result as normal/abnormal. RBC (test code = 789-8) 2.92 See_Comment L [Automated message] The system which generated this result transmitted reference range: 3.93 - 5.25 10*6/?L. The reference range was not used to interpret this result as normal/abnormal. HGB (test code = 718-7) 7.7 g/dL 11.6-15.0 L HCT (test code = 4544-3) 24.2 % 35.7-45.2 L MCH (test code = 785-6) 26.4 pg 25.9-32.8 MCV (test code = 787-2) 82.9 fL 80.6-95.5 MCHC (test code = 786-4) 31.8 g/dL 31.6-35.1 PLT (test code = 777-3) 220 See_Comment [Automated message] The system which generated this result transmitted reference range: 166 - 358 10*3/?L. The reference range was not used to interpret this result as normal/abnormal. MPV (test code = 05691-0) 10.2 fL 9.5-12.9 RDW-CV (test code = 788-0) 14.7 % 12.0-15.5 RDW-SD (test code = 50674-9) 44.5 fL 39.0-49.9 NRBC x10^3 (test code = 8451680856) See_Comment [Automated messa ge] The system which generated this result transmitted reference range: 10*3/?L. The reference range was not used to interpret this result as normal/abnormal. NRBC/100 WBC (test code = 8178279767) 0.0 See_Comment [Automated messa ge] The system which generated this result transmitted reference range: 0.0 - 10.0 /100 WBCs. The reference range was not used to interpret this result as normal/abnormal. IPF % (test code = 1743178335) Lab Interpretation (test code = 79416-7) Abnormal [facility] Packed RBC (in units), 1 Units 2022-12-07 10:23:39* Test Item Value Reference Range Interpretation Comme nts Cross Match Result (test code = 4409) Compatible ISBT Blood Type Code (test code = 213029) 5100 Unit Blood Type (test code = 4410) O Pos Unit Number (test code = 4411) [id number] Blood Expiration Date & Time (test code = 360476) [id number] Status Information (test code = 4412) Issued Product Identification (test code = 4413) Red Blood Cells Product Code (test code = 4414) [id number] Performed at [facility] Laboratory [facility] Blood [address]Toll Free: [phone] No. [id number] [facility] Packed RBC (in units), 1 Units 2022-12-07 10:23:39* Test Item Value Reference Range Interpretation Comme nts Cross Match Result (test code = 4409) Compatible ISBT Blood Type Code (test code = 775850) 5100 Unit Blood Type (test code = 4410) O Pos Unit Number (test code = 4411) [id number] Blood Expiration Date & Time (test code = 887236) 439426287569 Status Information (test code = 4412) Issued Product Identification (test code = 4413) Red Blood Cells Product Code (test code = 4414) [id number] Performed at [facility] Blood [place] [id number] Free: [phone] No. [id number] [facility] [id number] 10:23:02 * Test Item Value Reference Range Interpretation Comme nts TSH (test code = 6548400394) 0.37 See_Comment L [Automated messa ge] The system which generated this result transmitted reference range: 0.45 - 4.70 mIU/L. The reference range was not used to interpret this result as normal/abnormal. Lab Interpretation (test code = 24956-1) Abnormal [facility] [id number] 10:23:02 * Test Item Value Reference Range Interpretation Comme nts TSH (test code = 1967548564) 0.37 See_Comment L [Automated messa ge] The system which generated this result transmitted reference range: 0.45 - 4.70 mIU/L. The reference range was not used to interpret this result as normal/abnormal. Lab Interpretation (test code = 92500-9) [facility]normal [facility]2023-[facility]-12 09:52:53* Test Item Value Reference Range Interpretation Comme nts PHOSPHORUS (test code = 5453826420) 4.1 mg/dL 2.5-5.0 Lab Interpretation (test cod e = 06940-8) Normal [facility] 09:52:53* Test Item Value Reference Range Interpretation Comme nts MAGNESIUM (test code = 3460235105) 2.0 mg/dL 1.7-2.4 Lab Interpretation (test cod e = 61982-3) Normal [facility] (12077) (ALB,T.PRO,BILI T,BU/BC,ALT,AST,ALK PHOS)2022-12-07 09:52:53* Test Item Value Reference Range Interpretation Comme nts TOTAL BILI (test code = 4504233537) 0.6 mg/dL 0.1-1.1 BILI UNCON (test code = 4435975001) 0.5 mg/dL 0.1-1.1 BILI CONJ (test code = 1211550336) 0.0 mg/dL 0.0-0.3 T PROTEIN (test code = 8578064442) 5.5 g/dL 6.3-8.2 L ALBUMIN (test code = 7403975765) 3.0 g/dL 3.5-5.0 L ALK PHOS (test code = 8642053259) 46 U/L 34-122 ALTv (test code = 1742-6) 14 U/L 5-35 AST(SGOT) (test code = 5220248903) 18 U/L 13-40 Lab Interpretation (test cod e = 90889-8) Abnormal [facility] 09:52:53* Test Item Value Reference Range Interpretation Comme nts PHOSPHORUS (test code = 0467534740) 4.1 mg/dL 2.5-5.0 Lab Interpretation (test cod e = 67203-7) Normal [facility]12 09:52:53* Test Item Value Reference Range Interpretation Comme nts MAGNESIUM (test code = 5611202550) 2.0 mg/dL 1.7-2.4 Lab Interpretation (test cod e = 26865-3) Normal [facility] (55721) (ALB,T.PRO,BILI T,BU/BC,ALT,AST,ALK PHOS)2022-12-07 09:52:53* Test Item Value Reference Range Interpretation Comme nts TOTAL BILI (test code = 7324855750) 0.6 mg/dL 0.1-1.1 BILI UNCON (test code = 3666777423) 0.5 mg/dL 0.1-1.1 BILI CONJ (test code = 0820340774) 0.0 mg/dL 0.0-0.3 T PROTEIN (test code = 8794147086) 5.5 g/dL 6.3-8.2 L ALBUMIN (test code = 2050575818) 3.0 g/dL 3.5-5.0 L ALK PHOS (test code = 0083669919) 46 U/L 34-122 ALTv (test code = 1742-6) 14 U/L 5-35 AST(SGOT) (test code = 6122604145) 18 U/L 13-40 Lab Interpretation (test cod e = 83034-1) [facility] (NA, K, CL, CO2, GLUCOSE, BUN, CREATININE, CA)2022-12-07 09:52:52* Test Item Value Reference Range Interpretation Comme nts NA (test code = 9715037696) 139 mmol/L 135-145 K (test code = 4500853829) 3.7 mmol/L 3.5-5.0 CL (test code = 4818805577) 108 mmol/L 98-108 CO2 TOTAL (test code = 8710557103) 26 mmol/L 23-31 AGAP (test code = 1319337105) 5 2-16 BUN (test code = 4603601817) 11 mg/dL 7-23 GLUCOSE (test code = 5389930830) 105 mg/dL 70-110 CREATININE (test code = 9554000964) 0.84 mg/dL 0.50-1.04 CALCIUM (test code = 7011905936) 7.8 mg/dL 8.6-10.6 L eGFR (test code = 6934366731) 67.8 mL/min/1.73m2 AQUILINO (test code = AQUILINO) Association of Glomerular Filtration Rate (GFR) and Staging of Kidney Disease* + --+ --+ ------+| GFR (mL/min/1.73 m2) ?| With Kidney Damage ?| ?Without Kidney Damage+ --------+ --------+ +| ?>90 ?| ?Stage one ?| ? Normal ?+ ---+ ---+ -------+| ?60-89 ?| ?Stage two ?| ? Decreased GFR ? + --+ --+ ------+| ?30-59 ?| ?Stage three ?| ? Stage three ? + --+ --+ ------+| ?15-29 ?| ?Stage four ? | ? Stage four ?+ ---+ ---+ -------+| ?<15 (or dialysis) ? ?| ?Stage five ? | ? Stage five ?+ ---+ ---+ -------+ *Each stage assumes the associated GFR level has been in effect for at least three months. ?Stages 1 to 5, with or without kidney disease, indicate chronic kidney disease. Notes: Determination of stages one and two (with eGFR >59mL/min/1.73 m2) requires estimation of kidney damage for at least three months as defined by structural or functional abnormalities of the kidney, manifested by either:Pathological abnormalities or Markers of kidney damage (including abnormalities in the composition of the blood or urine or abnormalities in imaging tests). Lab Interpretation (test code = 08996-3) Abnormal [facility] METABOLIC PANEL (NA, K, CL, CO2, GLUCOSE, BUN, CREATININE, CA)2022-12-07 09:52:52* Test Item Value Reference Range Interpretation Comme nts NA (test code = 5620885277) 139 mmol/L 135-145 K (test code = 7651731130) 3.7 mmol/L 3.5-5.0 CL (test code = 8900553590) 108 mmol/L 98-108 CO2 TOTAL (test code = 3552045709) 26 mmol/L 23-31 AGAP (test code = 6690030328) 5 2-16 BUN (test code = 5255758386) 11 mg/dL 7-23 GLUCOSE (test code = 5294566144) 105 mg/dL 70-110 CREATININE (test code = 3544649595) 0.84 mg/dL 0.50-1.04 CALCIUM (test code = 8930053856) 7.8 mg/dL 8.6-10.6 L eGFR (test code = 1811351799) 67.8 mL/min/1.73m2 AQUILINO (test code = AQUILINO) Association of Glomerular Filtration Rate (GFR) and Staging of Kidney Disease* + --+ --+ ------+| GFR (mL/min/1.73 m2) ?| With Kidney Damage ?| ?Without Kidney Damage+ --------+ --------+ +| ?>90 ?| ?Stage one ?| ? Normal ?+ ---+ ---+ -------+| ?60-89 ?| ?Stage two ?| ? Decreased GFR ? + --+ --+ ------+| ?30-59 ?| ?Stage three ?| ? Stage three ? + --+ --+ ------+| ?15-29 ?| ?Stage four ? | ? Stage four ?+ ---+ ---+ -------+| ?<15 (or dialysis) ? ?| ?Stage five ? | ? Stage five ?+ ---+ ---+ -------+ *Each stage assumes the associated GFR level has been in effect for at least three months. ?Stages 1 to 5, with or without kidney disease, indicate chronic kidney disease. Notes: Determination of stages one and two (with eGFR >59mL/min/1.73 m2) requires estimation of kidney damage for at least three months as defined by structural or functional abnormalities of the kidney, manifested by either:Pathological abnormalities or Markers of kidney damage (including abnormalities in the composition of the blood or urine or abnormalities in imaging tests). Lab Interpretation (test code = 59538-7) [facility]normal [facility] Time / [id number] 09:50:56* Test Item Value Reference Range Interpretation Comme [facility] PROTIME PATIENT (test code = 5964-2) 14.2 See_Comment H [Automated messa ge] The system which generated this result transmitted reference range: 10.1 - 12.6 Seconds. The reference range was not used to interpret this result as normal/abnormal. INR (test code = 6301-6) 1.3 Normal INR <1.1; Warfarin Therapeutic range 2.0 to 3.0 or 2.5 to 3.5, depending upon the indications. Lab Interpretation (test code = 70725-2) Abnormal [facility] THRM[facility] [id number] 09:50:56* Test Item Value Reference Range Interpretation Comme [facility] APTT Patient (test code = 3173-2) 28 See_Comment [Automated [employer] BLAZER & FLIP FLOPS] The system which generated this result transmitted reference range: 26 - 36 Seconds. The reference range was not used to interpret this result as normal/abnormal. Lab Interpretation (test code = 05436-9) Normal [facility] / [id number] 09:50:56* Test Item Value Reference Range Interpretation Comme [facility] PROTIME PATIENT (test code = 5964-2) 14.2 See_Comment H [Automated [employer] BLAZER & FLIP FLOPS] The system which generated this result transmitted reference range: 10.1 - 12.6 Seconds. The reference range was not used to interpret this result as normal/abnormal. INR (test code = 6301-6) 1.3 Normal INR <1.1; Warfarin Therapeutic range 2.0 to 3.0 or 2.5 to 3.5, depending upon the indications. Lab Interpretation (test code = 75613-6) Abnormal [facility] [id number] 09:50:56* Test Item Value Reference Range Interpretation Comme [facility] APTT Patient (test code = 3173-2) 28 See_Comment [Automated [employer] BLAZER & FLIP FLOPS] The system which generated this result transmitted reference range: 26 - 36 Seconds. The reference range was not used to interpret this result as normal/abnormal. Lab Interpretation (test code = 41938-1) Normal [facility] WITH [id number] 09:37:14* Test Item Value Reference Range Interpretation Comme nts WBC (test code = 6690-2) 6.11 See_Comment [Automated messa ge] The system which generated this result transmitted reference range: 4.30 - 11.10 10*3/?L. The reference range was not used to interpret this result as normal/abnormal. RBC (test code = 789-8) 2.65 See_Comment L [Automated messa ge] The system which generated this result transmitted reference range: 3.93 - 5.25 10*6/?L. The reference range was not used to interpret this result as normal/abnormal. HGB (test code = 718-7) 6.8 g/dL 11.6-15.0 L HCT (test code = 4544-3) 22.0 % 35.7-45.2 L MCV (test code = 787-2) 83.0 fL 80.6-95.5 MCH (test code = 785-6) 25.7 pg 25.9-32.8 L MCHC (test code = 786-4) 30.9 g/dL 31.6-35.1 L RDW-SD (test code = 07841-7) 44.0 fL 39.0-49.9 RDW-CV (test code = 788-0) 14.7 % 12.0-15.5 PLT (test code = 777-3) 206 See_Comment [Automated messa ge] The system which generated this result transmitted reference range: 166 - 358 10*3/?L. The reference range was not used to interpret this result as normal/abnormal. MPV (test code = 02177-7) 9.8 fL 9.5-12.9 NRBC/100 WBC (test code = 2903823443) 0.0 See_Comment [Automated [employer] ssage] The system which generated this result transmitted reference range: 0.0 - 10.0 /100 WBCs. The reference range was not used to interpret this result as normal/abnormal. NRBC x10^3 (test code = 4906896701) See_Comment [Automated messa ge] The system which generated this result transmitted reference range: 10*3/?L. The reference range was not used to interpret this result as normal/abnormal. GRAN MAT (NEUT) % (test code = 770-8) 69.1 % IMM GRAN % (test code = 3257279859) 0.50 % LYMPH % (test code = 736-9) 23.2 % MONO % (test code = 5905-5) 6.9 % EOS % (test code = 713-8) 0.0 % BASO % (test code = 706-2) 0.3 % GRAN MAT x10^3(ANC) (test code = 2992457437) 4.22 10*3/uL 1.88-7.09 IMM GRAN x10^3 (test code = 5870714711) 0.03 10*3/uL 0.00-0.06 LYMPH x10^3 (test code = 731-0) 1.42 10*3/uL 1.32-3.29 MONO x10^3 (test code = 742-7) 0.42 10*3/uL 0.33-0.92 EOS x10^3 (test code = 711-2) 0.03-0.39 L BASO x10^3 (test code = 704-7) 0.01-0.07 Lab Interpretation (test code = 33534-9) Abnormal [facility] WITH [id number] 09:37:14* Test Item Value Reference Range Interpretation Comme nts WBC (test code = 6690-2) 6.11 See_Comment [Automated messa ge] The system which generated this result transmitted reference range: 4.30 - 11.10 10*3/?L. The reference range was not used to interpret this result as normal/abnormal. RBC (test code = 789-8) 2.65 See_Comment L [Automated messa ge] The system which generated this result transmitted reference range: 3.93 - 5.25 10*6/?L. The reference range was not used to interpret this result as normal/abnormal. HGB (test code = 718-7) 6.8 g/dL 11.6-15.0 L HCT (test code = 4544-3) 22.0 % 35.7-45.2 L MCV (test code = 787-2) 83.0 fL 80.6-95.5 MCH (test code = 785-6) 25.7 pg 25.9-32.8 L MCHC (test code = 786-4) 30.9 g/dL 31.6-35.1 L RDW-SD (test code = 71130-4) 44.0 fL 39.0-49.9 RDW-CV (test code = 788-0) 14.7 % 12.0-15.5 PLT (test code = 777-3) 206 See_Comment [Automated [employer] ge] The system which generated this result transmitted reference range: 166 - 358 10*3/?L. The reference range was not used to interpret this result as normal/abnormal. MPV (test code = 81560-4) 9.8 fL 9.5-12.9 NRBC/100 WBC (test code = 7608071608) 0.0 See_Comment [Automated [employer] ssage] The system which generated this result transmitted reference range: 0.0 - 10.0 /100 WBCs. The reference range was not used to interpret this result as normal/abnormal. NRBC x10^3 (test code = 8810770539) See_Comment [Automated [employer] ge] The system which generated this result transmitted reference range: 10*3/?L. The reference range was not used to interpret this result as normal/abnormal. GRAN MAT (NEUT) % (test code = 770-8) 69.1 % IMM GRAN % (test code = 8404722856) 0.50 % LYMPH % (test code = 736-9) 23.2 % MONO % (test code = 5905-5) 6.9 % EOS % (test code = 713-8) 0.0 % BASO % (test code = 706-2) 0.3 % GRAN MAT x10^3(ANC) (test code = 9246708371) 4.22 10*3/uL 1.88-7.09 IMM GRAN x10^3 (test code = 8825868603) 0.03 10*3/uL 0.00-0.06 LYMPH x10^3 (test code = 731-0) 1.42 10*3/uL 1.32-3.29 MONO x10^3 (test code = 742-7) 0.42 10*3/uL 0.33-0.92 EOS x10^3 (test code = 711-2) 0.03-0.39 L BASO x10^3 (test code = 704-7) 0.01-0.07 Lab Interpretation (test code = 29631-4) Abnormal [facility] Packed RBC (in units)2022-12-07 04:09:47* Test Item Value Reference Range Interpretation Comme nts Cross Match Result (test code = 4409) Compatible ISBT Blood Type Code (test code = 545173) 7300 Unit Blood Type (test code = 4410) B Pos Unit Number (test code = 4411) [id number] Blood Expiration Date & Time (test code = 816884) [id number] Status Information (test code = 4412) Issued Product Identification (test code = 4413) Red Blood Cells Product Code (test code = 4414) [id number] Performed at [facility] Laboratory Services [facility] Blood [address] [address]Ixrr Free: [phone] No. [id number] [facility] Packed RBC (in units)2022-12-07 04:09:47* Test Item Value Reference Range Interpretation Comme nts Cross Match Result (test code = 4409) Compatible ISBT Blood Type Code (test code = 135071) 7300 Unit Blood Type (test code = 4410) B Pos Unit Number (test code = 4411) [id number] Blood Expiration Date & Time (test code = 996139) [id number] Status Information (test code = 4412) Issued Product Identification (test code = 4413) Red Blood Cells Product Code (test code = 4414) [id number] Performed at [facility] Laboratory [facility] Blood [address] [place] [address]Hrxj Free: [phone] No. [id number] [facility] WITHOUT [id number] 03:51:34* Test Item Value Reference Range Interpretation Comme nts WBC (test code = 6690-2) 5.84 See_Comment [Automated message] The system which generated this result transmitted reference range: 4.30 - 11.10 10*3/?L. The reference range was not used to interpret this result as normal/abnormal. RBC (test code = 789-8) 2.40 See_Comment L [Automated message] The system which generated this result transmitted reference range: 3.93 - 5.25 10*6/?L. The reference range was not used to interpret this result as normal/abnormal. HGB (test code = 718-7) 6.1 g/dL 11.6-15.0 L HCT (test code = 4544-3) 19.8 % 35.7-45.2 L MCH (test code = 785-6) 25.4 pg 25.9-32.8 L MCV (test code = 787-2) 82.5 fL 80.6-95.5 MCHC (test code = 786-4) 30.8 g/dL 31.6-35.1 L PLT (test code = 777-3) 228 See_Comment [Automated message] The system which generated this result transmitted reference range: 166 - 358 10*3/?L. The reference range was not used to interpret this result as normal/abnormal. MPV (test code = 66378-9) 10.4 fL 9.5-12.9 RDW-CV (test code = 788-0) 14.8 % 12.0-15.5 RDW-SD (test code = 78044-7) 44.9 fL 39.0-49.9 NRBC x10^3 (test code = 0832719504) See_Comment [Automated messa ge] The system which generated this result transmitted reference range: 10*3/?L. The reference range was not used to interpret this result as normal/abnormal. NRBC/100 WBC (test code = 0926515117) 0.0 See_Comment [Automated messa ge] The system which generated this result transmitted reference range: 0.0 - 10.0 /100 WBCs. The reference range was not used to interpret this result as normal/abnormal. IPF % (test code = 3726036759) Lab Interpretation (test code = 86046-8) Abnormal [facility] WITHOUT [id number] 03:51:34* Test Item Value Reference Range Interpretation Comme nts WBC (test code = 6690-2) 5.84 See_Comment [Automated message] The system which generated this result transmitted reference range: 4.30 - 11.10 10*3/?L. The reference range was not used to interpret this result as normal/abnormal. RBC (test code = 789-8) 2.40 See_Comment L [Automated message] The system which generated this result transmitted reference range: 3.93 - 5.25 10*6/?L. The reference range was not used to interpret this result as normal/abnormal. HGB (test code = 718-7) 6.1 g/dL 11.6-15.0 L HCT (test code = 4544-3) 19.8 % 35.7-45.2 L MCH (test code = 785-6) 25.4 pg 25.9-32.8 L MCV (test code = 787-2) 82.5 fL 80.6-95.5 MCHC (test code = 786-4) 30.8 g/dL 31.6-35.1 L PLT (test code = 777-3) 228 See_Comment [Automated message] The system which generated this result transmitted reference range: 166 - 358 10*3/?L. The reference range was not used to interpret this result as normal/abnormal. MPV (test code = 15792-2) 10.4 fL 9.5-12.9 RDW-CV (test code = 788-0) 14.8 % 12.0-15.5 RDW-SD (test code = 01856-5) 44.9 fL 39.0-49.9 NRBC x10^3 (test code = 1265324870) See_Comment [Automated messa ge] The system which generated this result transmitted reference range: 10*3/?L. The reference range was not used to interpret this result as normal/abnormal. NRBC/100 WBC (test code = 4936280159) 0.0 See_Comment [Automated messa ge] The system which generated this result transmitted reference range: 0.0 - 10.0 /100 WBCs. The reference range was not used to interpret this result as normal/abnormal. IPF % (test code = 3909265555) Lab Interpretation (test code = 76977-9) [facility] [id number] 22:52:27* Test Item Value Reference Range Interpretation Comme nts FERRITIN (test code = 4561703038) 13.2 ng/mL 11.0-264.0 AQUILINO (test code = AQUILINO) Biotin has been reported to cause a negative bias, interpret results relative to patient's use of biotin. Lab Interpretation (test code = 69518-1) [facility] [id number] 22:52:27* Test Item Value Reference Range Interpretation Comme nts FERRITIN (test code = 4292302958) 13.2 ng/mL 11.0-264.0 AQUILINO (test code = AQUILINO) Biotin has been reported to cause a negative bias, interpret results relative to patient's use of biotin. Lab Interpretation (test code = 09489-5) Normal [facility] GLUCOSE (AUTOMATED)2022-12-06 21:57:10* Test Item Value Reference Range Interpretation Comme nts POCT GLU (test code = 0813687133) 124 mg/dL 70-110 H Lab Interpretation (test cod e = 22108-1) Abnormal [facility] GLUCOSE (AUTOMATED)2022-12-06 21:57:10* Test Item Value Reference Range Interpretation Comme nts POCT GLU (test code = 2372248103) 124 mg/dL 70-110 H Lab Interpretation (test cod e = 06891-2) Abnormal [facility] [id number] 21:21:51* Test Item Value Reference Range Interpretation Comme nts TROPONIN I (test code = 4161581314) <=0.034 AQUILINO (test code = AQUILINO) Reference (Normal) Range (defined by the 99th percentile reference limit): <= 0.034 ng/mL Note: Cardiac troponin begins to rise 3-4 hours after the onset of ischemia. Repeat in 4-6 hours if the sample was drawn within 3-4 hours of the onset of the symptom and found normal. Diagnosis of myocardial injury is made with acute changes in cTn concentrations with at least one serial sample above the 99th percentile upper reference limit (URL), taken together with the patient's clinical presentation. Biotin has been reported to cause a negative bias, interpret results relative to patient's use of biotin. Lab Interpretation (test code = 92717-0) Normal [facility] [id number] 21:21:51* Test Item Value Reference Range Interpretation Comme nts NT-proBNP (test code = 31677-9) 1190 pg/mL <=125 H AQUILINO (test code = AQUILINO) Positive: Heart Failure Likely Lab Interpretation (test code = 66399-1) [facility]normal [facility] [id number] 21:21:51* Test Item Value Reference Range Interpretation Comme nts TROPONIN I (test code = 8169442434) <=0.034 AQUILINO (test code = AQUILINO) Reference (Normal) Range (defined by the 99th percentile reference limit): <= 0.034 ng/mL Note: Cardiac troponin begins to rise 3-4 hours after the onset of ischemia. Repeat in 4-6 hours if the sample was drawn within 3-4 hours of the onset of the symptom and found normal. Diagnosis of myocardial injury is made with acute changes in cTn concentrations with at least one serial sample above the 99th percentile upper reference limit (URL), taken together with the patient's clinical presentation. Biotin has been reported to cause a negative bias, interpret results relative to patient's use of biotin. Lab Interpretation (test code = 29634-6) Normal [facility] [id number] 21:21:51* Test Item Value Reference Range Interpretation Comme nts NT-proBNP (test code = 79583-9) 1190 pg/mL <=125 H AQUILINO (test code = AQUILINO) Positive: Heart Failure Likely Lab Interpretation (test code = 61667-1) [facility]normal [facility] Marshall[facility]th[facility] Time / [id number] 20:51:44* Test Item Value Reference Range Interpretation Comme nts PROTIME PATIENT (test code = 5964-2) 22.1 See_Comment H [Automated messa ge] The system which generated this result transmitted reference range: 10.1 - 12.6 Seconds. The reference range was not used to interpret this result as normal/abnormal. INR (test code = 6301-6) 1.9 Normal INR <1.1; Warfarin Therapeutic range 2.0 to 3.0 or 2.5 to 3.5, depending upon the indications. Lab Interpretation (test code = 50101-0) [facility]normal [facility] THRMPLAS [id number] 20:51:44* Test Item Value Reference Range Interpretation Comme nts APTT Patient (test code = 3173-2) 32 See_Comment [Automated messa [employer] FLIP FLOPS] The system which generated this result transmitted reference range: 26 - 36 Seconds. The reference range was not used to interpret this result as normal/abnormal. Lab Interpretation (test code = 27605-0) Normal [facility]IB[facility]INOGEN2023-10-11 20:51:44* Test Item Value Reference Range Interpretation Comme [facility] Fibrinogen (test code = 4177037799) 218 mg/dL 167-453 Lab Interpretation (test cod e = 94317-0) [facility] / [id number] 20:51:44* Test Item Value Reference Range Interpretation Comme [facility] PROTIME PATIENT (test code = 5964-2) 22.1 See_Comment H [Automated [employer] BLAZER [employer] FLIP FLOPS] The system which generated this result transmitted reference range: 10.1 - 12.6 Seconds. The reference range was not used to interpret this result as normal/abnormal. INR (test code = 6301-6) 1.9 Normal INR <1.1; Warfarin Therapeutic range 2.0 to 3.0 or 2.5 to 3.5, depending upon the indications. Lab Interpretation (test code = 01559-8) Abnormal [facility] THRM[facility] [id number] 20:51:44* Test Item Value Reference Range Interpretation Comme nts APTT Patient (test code = 3173-2) 32 See_Comment [Automated [employer] BLAZ[employer] FLIP FLOPS] The system which generated this result transmitted reference range: 26 - 36 Seconds. The reference range was not used to interpret this result as normal/abnormal. Lab Interpretation (test code = 27458-6) [facility]2023-10-11 20:51:44* Test Item Value Reference Range Interpretation Comme [facility] Fibrinogen (test code = 6054217718) 218 mg/dL 167-453 Lab Interpretation (test cod e = 03449-8) Normal [facility] MarshallL[facility] Acid Whole [id number] 20:36:59* Test Item Value Reference Range Interpretation Comme nts LACTIC ACID (test code = 3073873092) 1.23 mmol/L 0.50-2.20 Lab Interpretation (test cod e = 50367-6) Normal [facility] [place] [place] Acid Whole [id number] 20:36:59* Test Item Value Reference Range Interpretation Comme nts LACTIC ACID (test code = 3874088117) 1.23 mmol/L 0.50-2.20 Lab Interpretation (test cod e = 39054-4) Normal [facility] WITH [id number] 20:35:42* Test Item Value Reference Range Interpretation Comme nts WBC (test code = 6690-2) 7.02 See_Comment [Automated messa ge] The system which generated this result transmitted reference range: 4.30 - 11.10 10*3/?L. The reference range was not used to interpret this result as normal/abnormal. RBC (test code = 789-8) 2.20 See_Comment L [Automated messa ge] The system which generated this result transmitted reference range: 3.93 - 5.25 10*6/?L. The reference range was not used to interpret this result as normal/abnormal. HGB (test code = 718-7) 5.6 g/dL 11.6-15.0 L HCT (test code = 4544-3) 18.1 % 35.7-45.2 L MCV (test code = 787-2) 82.3 fL 80.6-95.5 MCH (test code = 785-6) 25.5 pg 25.9-32.8 L MCHC (test code = 786-4) 30.9 g/dL 31.6-35.1 L RDW-SD (test code = 74766-7) 46.5 fL 39.0-49.9 RDW-CV (test code = 788-0) 15.6 % 12.0-15.5 H PLT (test code = 777-3) 241 See_Comment [Automated messa ge] The system which generated this result transmitted reference range: 166 - 358 10*3/?L. The reference range was not used to interpret this result as normal/abnormal. MPV (test code = 09923-9) 10.3 fL 9.5-12.9 NRBC/100 WBC (test code = 9805410827) 0.0 See_Comment [Automated me ssage] The system which generated this result transmitted reference range: 0.0 - 10.0 /100 WBCs. The reference range was not used to interpret this result as normal/abnormal. NRBC x10^3 (test code = 4248541557) See_Comment [Automated messa ge] The system which generated this result transmitted reference range: 10*3/?L. The reference range was not used to interpret this result as normal/abnormal. GRAN MAT (NEUT) % (test code = 770-8) 81.5 % IMM GRAN % (test code = 8572156374) 0.30 % LYMPH % (test code = 736-9) 14.0 % MONO % (test code = 5905-5) 3.4 % EOS % (test code = 713-8) 0.4 % BASO % (test code = 706-2) 0.4 % GRAN MAT x10^3(ANC) (test code = 6965401509) 5.72 10*3/uL 1.88-7.09 IMM GRAN x10^3 (test code = 8029461692) 0.00-0.06 LYMPH x10^3 (test code = 731-0) 0.98 10*3/uL 1.32-3.29 L MONO x10^3 (test code = 742-7) 0.24 10*3/uL 0.33-0.92 L EOS x10^3 (test code = 711-2) 0.03 10*3/uL 0.03-0.39 BASO x10^3 (test code = 704-7) 0.03 10*3/uL 0.01-0.07 Lab Interpretation (test code = 72510-9) Abnormal [facility] WITH [id number] 20:35:42* Test Item Value Reference Range Interpretation Comme nts WBC (test code = 6690-2) 7.02 See_Comment [Automated messa ge] The system which generated this result transmitted reference range: 4.30 - 11.10 10*3/?L. The reference range was not used to interpret this result as normal/abnormal. RBC (test code = 789-8) 2.20 See_Comment L [Automated messa ge] The system which generated this result transmitted reference range: 3.93 - 5.25 10*6/?L. The reference range was not used to interpret this result as normal/abnormal. HGB (test code = 718-7) 5.6 g/dL 11.6-15.0 L HCT (test code = 4544-3) 18.1 % 35.7-45.2 L MCV (test code = 787-2) 82.3 fL 80.6-95.5 MCH (test code = 785-6) 25.5 pg 25.9-32.8 L MCHC (test code = 786-4) 30.9 g/dL 31.6-35.1 L RDW-SD (test code = 40070-6) 46.5 fL 39.0-49.9 RDW-CV (test code = 788-0) 15.6 % 12.0-15.5 H PLT (test code = 777-3) 241 See_Comment [Automated messa ge] The system which generated this result transmitted reference range: 166 - 358 10*3/?L. The reference range was not used to interpret this result as normal/abnormal. MPV (test code = 44915-7) 10.3 fL 9.5-12.9 NRBC/100 WBC (test code = 6185374845) 0.0 See_Comment [Automated [employer] ssage] The system which generated this result transmitted reference range: 0.0 - 10.0 /100 WBCs. The reference range was not used to interpret this result as normal/abnormal. NRBC x10^3 (test code = 0580112066) See_Comment [Automated messa ge] The system which generated this result transmitted reference range: 10*3/?L. The reference range was not used to interpret this result as normal/abnormal. GRAN MAT (NEUT) % (test code = 770-8) 81.5 % IMM GRAN % (test code = 5102348802) 0.30 % LYMPH % (test code = 736-9) 14.0 % MONO % (test code = 5905-5) 3.4 % EOS % (test code = 713-8) 0.4 % BASO % (test code = 706-2) 0.4 % GRAN MAT x10^3(ANC) (test code = 2050298454) 5.72 10*3/uL 1.88-7.09 IMM GRAN x10^3 (test code = 0138696187) 0.00-0.06 LYMPH x10^3 (test code = 731-0) 0.98 10*3/uL 1.32-3.29 L MONO x10^3 (test code = 742-7) 0.24 10*3/uL 0.33-0.92 L EOS x10^3 (test code = 711-2) 0.03 10*3/uL 0.03-0.39 BASO x10^3 (test code = 704-7) 0.03 10*3/uL 0.01-0.07 Lab Interpretation (test code = 70103-0) [facility] [id number] 20:34:00* Test Item Value Reference Range Interpretation Comme nts ABO & RH (test code = 20) B Positive IAT (test code = 1185) Negative [facility] [id number] 20:34:00* Test Item Value Reference Range Interpretation Comme nts ABO & RH (test code = 20) B Positive IAT (test code = 1185) Negative [facility] P[facility] RBC (in units), 1 Units 2022-12-06 16:03:52* Test Item Value Reference Range Interpretation Comme nts Cross Match Result (test code = 4409) Compatible ISBT Blood Type Code (test code = 892204) 7300 Unit Blood Type (test code = 4410) B Pos Unit Number (test code = 4411) [id number] Blood Expiration Date & Time (test code = 157946) 709320615530 Status Information (test code = 4412) Issued Product Identification (test code = 4413) Red Blood Cells Product Code (test code = 4414) [id number] Performed at [facility] B Laboratory Services - [facility] Blood [address] [place] [id number] Free: [phone] No. [id number] [facility] P[facility] RBC (in units), 1 Units 2022-12-06 16:03:52* Test Item Value Reference Range Interpretation Comme nts Cross Match Result (test code = 4409) Compatible ISBT Blood Type Code (test code = 750267) 7300 Unit Blood Type (test code = 4410) B Pos Unit Number (test code = 4411) [id number] Blood Expiration Date & Time (test code = 006817) 148601743302 Status Information (test code = 4412) Issued Product Identification (test code = 4413) Red Blood Cells Product Code (test code = 4414) [id number] Performed at [facility] B Laboratory Services - [facility] Blood [address] [place], [place] [id number] Free: [phone] No. [id number] [facility] Confirmation (Lab Only)2022-12-06 15:08:00* Test Item Value Reference Range Interpretation Comme nts ABO & RH (test code = 20) B Positive [facility] Confirmation (Lab Only)2022-12-06 15:08:00* Test Item Value Reference Range Interpretation Comme nts ABO & RH (test code = 20) B Positive [facility] WITH [id number] 15:04:26* Test Item Value Reference Range Interpretation Comme nts WBC (test code = 6690-2) 10.44 See_Comment [Automated messa ge] The system which generated this result transmitted reference range: 4.30 - 11.10 10*3/?L. The reference range was not used to interpret this result as normal/abnormal. RBC (test code = 789-8) 1.98 See_Comment L [Automated messa ge] The system which generated this result transmitted reference range: 3.93 - 5.25 10*6/?L. The reference range was not used to interpret this result as normal/abnormal. HGB (test code = 718-7) 4.7 g/dL 11.6-15.0 LL HCT (test code = 4544-3) 16.5 % 35.7-45.2 L MCV (test code = 787-2) 83.3 fL 80.6-95.5 MCH (test code = 785-6) 23.7 pg 25.9-32.8 L MCHC (test code = 786-4) 28.5 g/dL 31.6-35.1 L RDW-SD (test code = 16377-8) 45.5 fL 39.0-49.9 RDW-CV (test code = 788-0) 15.3 % 12.0-15.5 PLT (test code = 777-3) 300 See_Comment [Automated messa ge] The system which generated this result transmitted reference range: 166 - 358 10*3/?L. The reference range was not used to interpret this result as normal/abnormal. MPV (test code = 01716-6) 10.5 fL 9.5-12.9 NRBC/100 WBC (test code = 4639770002) 0.0 See_Comment [Automated [employer] ssage] The system which generated this result transmitted reference range: 0.0 - 10.0 /100 WBCs. The reference range was not used to interpret this result as normal/abnormal. NRBC x10^3 (test code = 9988676868) See_Comment [Automated messa ge] The system which generated this result transmitted reference range: 10*3/?L. The reference range was not used to interpret this result as normal/abnormal. GRAN MAT (NEUT) % (test code = 770-8) 76.9 % IMM GRAN % (test code = 4546622486) 0.90 % LYMPH % (test code = 736-9) 15.4 % MONO % (test code = 5905-5) 5.6 % EOS % (test code = 713-8) 0.7 % BASO % (test code = 706-2) 0.5 % GRAN MAT x10^3(ANC) (test code = 6702705656) 8.04 10*3/uL 1.88-7.09 H IMM GRAN x10^3 (test code = 6988777498) 0.09 10*3/uL 0.00-0.06 H LYMPH x10^3 (test code = 731-0) 1.61 10*3/uL 1.32-3.29 MONO x10^3 (test code = 742-7) 0.58 10*3/uL 0.33-0.92 EOS x10^3 (test code = 711-2) 0.07 10*3/uL 0.03-0.39 BASO x10^3 (test code = 704-7) 0.05 10*3/uL 0.01-0.07 BASO STIPPLING (test code = 703-9) Present A POLYCHROMASIA (test code = 06334-5) 2+ See_Comment [Automated messa ge] The system which generated this result transmitted reference range: 2+. The reference range was not used to interpret this result as normal/abnormal. GIANT PLATELETS (test code = 5908-9) Present See_Comment A [Automated messa ge] The system which generated this result transmitted reference range: (none). The reference range was not used to interpret this result as normal/abnormal. Lab Interpretation (test code = 06511-4) Abnormal [facility] WITH [id number] 15:04:26* Test Item Value Reference Range Interpretation Comme nts WBC (test code = 6690-2) 10.44 See_Comment [Automated messa ge] The system which generated this result transmitted reference range: 4.30 - 11.10 10*3/?L. The reference range was not used to interpret this result as normal/abnormal. RBC (test code = 789-8) 1.98 See_Comment L [Automated messa ge] The system which generated this result transmitted reference range: 3.93 - 5.25 10*6/?L. The reference range was not used to interpret this result as normal/abnormal. HGB (test code = 718-7) 4.7 g/dL 11.6-15.0 LL HCT (test code = 4544-3) 16.5 % 35.7-45.2 L MCV (test code = 787-2) 83.3 fL 80.6-95.5 MCH (test code = 785-6) 23.7 pg 25.9-32.8 L MCHC (test code = 786-4) 28.5 g/dL 31.6-35.1 L RDW-SD (test code = 02695-0) 45.5 fL 39.0-49.9 RDW-CV (test code = 788-0) 15.3 % 12.0-15.5 PLT (test code = 777-3) 300 See_Comment [Automated messa ge] The system which generated this result transmitted reference range: 166 - 358 10*3/?L. The reference range was not used to interpret this result as normal/abnormal. MPV (test code = 78798-4) 10.5 fL 9.5-12.9 NRBC/100 WBC (test code = 4391888422) 0.0 See_Comment [Automated [employer] ssage] The system which generated this result transmitted reference range: 0.0 - 10.0 /100 WBCs. The reference range was not used to interpret this result as normal/abnormal. NRBC x10^3 (test code = 2983996700) See_Comment [Automated messa ge] The system which generated this result transmitted reference range: 10*3/?L. The reference range was not used to interpret this result as normal/abnormal. GRAN MAT (NEUT) % (test code = 770-8) 76.9 % IMM GRAN % (test code = 6514825186) 0.90 % LYMPH % (test code = 736-9) 15.4 % MONO % (test code = 5905-5) 5.6 % EOS % (test code = 713-8) 0.7 % BASO % (test code = 706-2) 0.5 % GRAN MAT x10^3(ANC) (test code = 3762499866) 8.04 10*3/uL 1.88-7.09 H IMM GRAN x10^3 (test code = 4023043641) 0.09 10*3/uL 0.00-0.06 H LYMPH x10^3 (test code = 731-0) 1.61 10*3/uL 1.32-3.29 MONO x10^3 (test code = 742-7) 0.58 10*3/uL 0.33-0.92 EOS x10^3 (test code = 711-2) 0.07 10*3/uL 0.03-0.39 BASO x10^3 (test code = 704-7) 0.05 10*3/uL 0.01-0.07 BASO STIPPLING (test code = 703-9) Present A POLYCHROMASIA (test code = 34154-5) 2+ See_Comment [Automated messa ge] The system which generated this result transmitted reference range: 2+. The reference range was not used to interpret this result as normal/abnormal. GIANT PLATELETS (test code = 5908-9) Present See_Comment A [Automated messa ge] The system which generated this result transmitted reference range: (none). The reference range was not used to interpret this result as normal/abnormal. Lab Interpretation (test code = 44927-3) [facility]normal [facility] [id number] 14:48:57* Test Item Value Reference Range Interpretation Comme [facility] APTT Patient (test code = 3173-2) 32 See_Comment [Automated message] The system which generated this result transmitted reference range: 23 - 38 Seconds. The reference range was not used to interpret this result as normal/abnormal. AQUILINO (test code = AQUILINO) The [facility] patient population mean normal value for aPTT is 30 seconds. Lab Interpretation (test code = 45267-8) Normal [facility] [id number] 14:48:57* Test Item Value Reference Range Interpretation Comme [facility] APTT Patient (test code = 3173-2) 32 See_Comment [Automated message] The system which generated this result transmitted reference range: 23 - 38 Seconds. The reference range was not used to interpret this result as normal/abnormal. AQUILINO (test code = AQUILINO) The [facility] patient population mean normal value for aPTT is 30 seconds. Lab Interpretation (test code = 02660-0) Normal [facility] / [id number] 14:47:15* Test Item Value Reference Range Interpretation Comme [facility] PROTIME PATIENT (test code = 5964-2) 26.6 See_Comment H [Automated messa ge] The system which generated this result transmitted reference range: 12.0 - 14.7 Seconds. The reference range was not used to interpret this result as normal/abnormal. INR (test code = 6301-6) 2.5 Normal INR <1.1; Warfarin Therapeutic range 2.0 to 3.0 or 2.5 to 3.5, depending upon the indications. Lab Interpretation (test code = 39321-7) Abnormal [facility] / [id number] 14:47:15* Test Item Value Reference Range Interpretation Comme [facility] PROTIME PATIENT (test code = 5964-2) 26.6 See_Comment H [Automated [employer]] The system which generated this result transmitted reference range: 12.0 - 14.7 Seconds. The reference range was not used to interpret this result as normal/abnormal. INR (test code = 6301-6) 2.5 Normal INR <1.1; Warfarin Therapeutic range 2.0 to 3.0 or 2.5 to 3.5, depending upon the indications. Lab Interpretation (test code = 50497-3) Abnormal [facility]. METABOLIC PANEL (95834)2022-12-06 14:18:50* Test Item Value Reference Range Interpretation Comme [facility] NA (test code = 4732522461) 138 mmol/L 135-145 K (test code = 3398891376) 3.9 mmol/L 3.5-5.0 CL (test code = 0708417710) 102 mmol/L 98-108 CO2 TOTAL (test code = 4877148389) 24 mmol/L 23-31 AGAP (test code = 1040082742) 12 2-16 BUN (test code = 5885000592) 13 mg/dL 7-23 GLUCOSE (test code = 3646572618) 126 mg/dL 70-110 H CREATININE (test code = 3430641195) 1.05 mg/dL 0.50-1.04 H TOTAL BILI (test code = 3207173018) 0.4 mg/dL 0.1-1.1 CALCIUM (test code = 8449378156) 8.4 mg/dL 8.6-10.6 L T PROTEIN (test code = 2681449862) 6.1 g/dL 6.3-8.2 L ALBUMIN (test code = 5834115421) 3.4 g/dL 3.5-5.0 L ALK PHOS (test code = 9630934688) 51 U/L 34-122 ALTv (test code = 1742-6) 19 U/L 5-35 AST(SGOT) (test code = 1462440395) 21 U/L 13-40 eGFR (test code = 5943384351) 52.4 mL/min/1.73m2 AQUILINO (test code = AQUILINO) Association of Glomerular Filtration Rate (GFR) and Staging of Kidney Disease* + --+ --+ ------+| GFR (mL/min/1.73 m2) ?| With Kidney Damage ?| ?Without Kidney Damage+ --------+ --------+ +| ?>90 ?| ?Stage one ?| ? Normal ?+ ---+ ---+ -------+| ?60-89 ?| ?Stage two ?| ? Decreased GFR ? + --+ --+ ------+| ?30-59 ?| ?Stage three ?| ? Stage three ? + --+ --+ ------+| ?15-29 ?| ?Stage four ? | ? Stage four ?+ ---+ ---+ -------+| ?<15 (or dialysis) ? ?| ?Stage five ? | ? Stage five ?+ ---+ ---+ -------+ *Each stage assumes the associated GFR level has been in effect for at least three months. ?Stages 1 to 5, with or without kidney disease, indicate chronic kidney disease. Notes: Determination of stages one and two (with eGFR >59mL/min/1.73 m2) requires estimation of kidney damage for at least three months as defined by structural or functional abnormalities of the kidney, manifested by either:Pathological abnormalities or Markers of kidney damage (including abnormalities in the composition of the blood or urine or abnormalities in imaging tests). Lab Interpretation (test code = 76700-4) [facility]normal [facility] 14:18:50* Test Item Value Reference Range Interpretation Comme nts LIPASE (test code = 3663121408) 71 U/L 0-220 Lab Interpretation (test cod e = 13789-8) Normal [facility] METABOLIC PANEL (87442)2022-12-06 14:18:50* Test Item Value Reference Range Interpretation Comme nts NA (test code = 0179033362) 138 mmol/L 135-145 K (test code = 7509018303) 3.9 mmol/L 3.5-5.0 CL (test code = 3657016860) 102 mmol/L 98-108 CO2 TOTAL (test code = 8933972554) 24 mmol/L 23-31 AGAP (test code = 6173599358) 12 2-16 BUN (test code = 8828997414) 13 mg/dL 7-23 GLUCOSE (test code = 6670425155) 126 mg/dL 70-110 H CREATININE (test code = 2885468173) 1.05 mg/dL 0.50-1.04 H TOTAL BILI (test code = 5290061637) 0.4 mg/dL 0.1-1.1 CALCIUM (test code = 1235215048) 8.4 mg/dL 8.6-10.6 L T PROTEIN (test code = 2303237822) 6.1 g/dL 6.3-8.2 L ALBUMIN (test code = 0688677039) 3.4 g/dL 3.5-5.0 L ALK PHOS (test code = 3695912671) 51 U/L 34-122 ALTv (test code = 1742-6) 19 U/L 5-35 AST(SGOT) (test code = 9826032544) 21 U/L 13-40 eGFR (test code = 3422420885) 52.4 mL/min/1.73m2 AQUILINO (test code = AQUILINO) Association of Glomerular Filtration Rate (GFR) and Staging of Kidney Disease* + --+ --+ ------+| GFR (mL/min/1.73 m2) ?| With Kidney Damage ?| ?Without Kidney Damage+ --------+ --------+ +| ?>90 ?| ?Stage one ?| ? Normal ?+ ---+ ---+ -------+| ?60-89 ?| ?Stage two ?| ? Decreased GFR ? + --+ --+ ------+| ?30-59 ?| ?Stage three ?| ? Stage three ? + --+ --+ ------+| ?15-29 ?| ?Stage four ? | ? Stage four ?+ ---+ ---+ -------+| ?<15 (or dialysis) ? ?| ?Stage five ? | ? Stage five ?+ ---+ ---+ -------+ *Each stage assumes the associated GFR level has been in effect for at least three months. ?Stages 1 to 5, with or without kidney disease, indicate chronic kidney disease. Notes: Determination of stages one and two (with eGFR >59mL/min/1.73 m2) requires estimation of kidney damage for at least three months as defined by structural or functional abnormalities of the kidney, manifested by either:Pathological abnormalities or Markers of kidney damage (including abnormalities in the composition of the blood or urine or abnormalities in imaging tests). Lab Interpretation (test code = 32002-4) [facility]normal [facility] 14:18:50* Test Item Value Reference Range Interpretation Comme nts LIPASE (test code = 4340615978) 71 U/L 0-220 Lab Interpretation (test cod e = 94404-4) Normal [facility] - [facility]CE [id number] 13:59:00* Test Item Value Reference Range Interpretation Comme nts ABO & RH (test code = 20) B Positive IAT (test code = 1185) Negative [facility] [id number] 13:59:00* Test Item Value Reference Range Interpretation Comme nts ABO & RH (test code = 20) B Positive IAT (test code = 1185) Negative [facility]"
[2023-02-24 13:24] LABS: Absolute Lymphocytes (CBC) 2.4 K/uL (0.7-4.9); Hematocrit 31.8 % (36.0-45.0); Lymphocytes % 22.7 % (15.3-44.8); MCV 80.4 fL (80-100); MPV 8.6 fL (7.6-11.3); Platelets 298 thou/uL (152-406); RBC Red Blood Cell Count 3.95 M/uL (3.86-4.86)
[2023-02-24 13:31] LABS: Protime INR 2.24
[2023-02-24 13:41] LABS: Albumin 3.3 g/dL (3.4-5.0); Bilirubin Total 0.3 mg/dL (0.2-1.0); Protein, Total 7.3 g/dL (6.4-8.2)
--- NOTE | 2023-02-24 14:23 | RAD REPORT ---
EXAM DESCRIPTION: CT - Abdomen Pelvis W Contrast - 02/24/2023 1:58 pm CLINICAL HISTORY: Abdominal pain COMPARISON: none. TECHNIQUE: Computed axial tomography of the abdomen pelvis was obtained. 100 cc Isovue-300 was admin istered intravenously. Oral contrast was not requested which limits evaluation of bowel and appendix All CT scans are performed using dose optimization technique as appropriate and may include automated exposure control or mA/KV adjustment according to patient size. FINDINGS: Liver, spleen, pancreas and adrenals unremarkable. Bilateral renal cysts. 1.7 centimeter intermediate to high density mass extends off of left kidney Multiple gallstones. Gallbladder wall is not thickened. No evidence of diverticulitis/colitis. No adnexal mass Small to moderate calcified central disc herniation L5-S1 IMPRESSION: Cholelithiasis without evidence of cholecystitis 1.7 centimeter intermediate to high density left renal mass may represent a benign complex cyst or so lid lesion. It is recommended that the patient have an unenhanced CT scan of the kidneys on another d ay. This can be compared to the current exam to determine if there is abnormal enhancement
--- NOTE | 2023-02-24 16:39 | EDPHYS ---
Physician Documentation [facility] Name: Shereen Gage Age: 67 yrs Sex: Female : 1955 Arrival Date: 02/24/2023 Time: 12:23 Bed 17 Private MD: ED Physician Papi Phoenix HPI: 02/24 14:54 This 67 yrs old Female presents to ER via Ambulatory with complaints of Rectal Bleeding.rn 14:54 The patient presents to the emergency department with bleeding from the rectum/anus. rn 14:54 Onset: The symptoms/episode began/occurred 2 day(s) ago. Context: the patient has no rn known special context relating to the rectal area complaint(s). Modifying factors: The symptoms are alleviated by nothing, The symptoms are aggravated by bowel movement. The patient has experienced a previous episode. Patient reports rectal bleeding over the last couple days. Mild left and mid abdominal pain. Has had GI bleed in the past and required blood transfusion. Reports takes Xarelto for A-fib. Bleeding actually slowing down but still passing some blood in stool. Is a mixture of dark red and bright red blood. No dizziness or shortness of breath. No chest pain.. Historical: - Allergies: 12:54 No Known Allergies; hb - Home Meds: 12:59 escitalopram oxalate 20 mg oral tablet nightly [Active]; carvedilol 25 mg oral tablet hb three times a day [Active]; digoxin 250 mcg (0.25 mg) Oral tablet daily [Active]; lisinopril 10 mg Oral tablet daily [Active]; Lasix 40 mg Oral tablet 2 times per day [Active]; spironolactone 25 mg Oral tablet 2 times per day [Active]; Xarelto 20 mg oral tablet daily [Active]; aspirin 81 mg Oral tablet,chewable [Active]; - PMHx: 12:54 Anemia; GI Bleed; Atrial fibrillation; CHF; Hypertension; hb - PSHx: 12:54 Ankle - Right; Tonsillectomy; AAA Repair; hb - Immunization history:: Adult Immunizations up to date. - Social history:: Smoking status: Patient denies any tobacco usage or history of. - Family history:: not pertinent. - Hospitalizations: : No recent hospitalization is reported. ROS: 14:54 Constitutional: Negative for fever, chills, and weight loss, Cardiovascular: Negative rn for chest pain, palpitations, and edema, Respiratory: Negative for shortness of breath, cough, wheezing, and pleuritic chest pain, Abdomen/GI: Positive for abdominal pain and rectal bleeding MS/Extremity: Negative for injury and deformity, Skin: Negative for injury, rash, and discoloration, Neuro: Positive for generalized weakness Exam: 14:54 Constitutional: This is a well developed, well nourished patient who is awake, alert, rn and in no acute distress. Head/Face: Normocephalic, atraumatic. Cardiovascular: Regular rate and rhythm. No pulse deficits. Respiratory: No increased work of breathing, no retractions or nasal flaring. Abdomen/GI: Epigastric and left upper quadrant tenderness without guarding or rebound. MS/ Extremity: Pulses equal, no cyanosis. Neuro: Awake and alert, GCS 15 Vital Signs: 12:51 BP 120 / 88; Pulse 89; Resp 16; Temp 98.3(O); Pulse Ox 96% on R/A; Weight 90.72 kg; hb Height 5 ft. 7 in. ; Pain 6/10; 15:00 BP 107 / 68; Pulse 67; Resp 18; Pulse Ox 100% ; cp4 16:00 BP 95 / 46; Pulse 74; Resp 18; Pulse Ox 100% ; cp4 16:35 BP 115 / 58; Pulse 64; Resp 18; Pulse Ox 99% ; cp4 16:35 BP 115 / 58; rn 12:51 Body Mass Index 31.32 (90.72 kg, 170.18 cm) hb 12:51 Pain Scale: Adult hb MDM: 12:29 Patient medically screened. rn 16:35 Differential diagnosis: hemorrhoids, Colitis, polyps, AVM, diverticulosis. rn 16:36 Data reviewed: vital signs, nurses notes, lab test result(s), radiologic studies, CT rn scan, and as a result, I will discharge patient. 16:37 Consideration of Admission/Observation Escalation of care including internet application developer/observation considered. Initial hemoglobin 10.7 in no acute findings and CT scan. Patient wanted to go home but I convinced her to stay for repeat hemoglobin, repeat is 10.0. I do not think I would Consider that a significant drop and patient without further bloody bowel movements here. Patient request to go home, with plans to hold her Xarelto and her aspirin and understands return precautions. I have personally reviewed all of the results, including but not limited to blood tests and imaging deemed necessary to safely discharge this patient at this time. All results given to and printed out for patient. I personally went over all the results with the patient and answered all questions. Patient will follow-up with PCP and or specialist as discussed. Return precautions given and understood.. 02/24 12:55 Order name: CBC with Diff; Complete Time: 14:10 rn 02/24 12:55 Order name: CMP; Complete Time: 14:10 rn 02/24 12:55 Order name: Lipase; Complete Time: 14:10 rn 02/24 12:55 Order name: Protime (+inr); Complete Time: 14:10 rn 02/24 12:55 Order name: Ptt, Activated; Complete Time: 14:10 rn 02/24 12:55 Order name: Type And Screen; Complete Time: 15:07 rn 02/24 12:55 Order name: Lactate w/ 2H reflex if indic.; Complete Time: 14:10 rn 02/24 13:58 Order name: Antibody Identification; Complete Time: 15:07 EDWV 02/24 15:20 Order name: Hemoglobin; Complete Time: 15:55 rn 02/24 12:55 Order name: CT Abd/Pelvis - IV Contrast Only; Complete Time: 14:30 rn 02/24 12:55 Order name: EKG; Complete Time: 12:55 rn 02/24 12:55 Order name: IV Saline Lock; Complete Time: 13:11 rn 02/24 12:55 Order name: Labs collected and sent; Complete Time: 13:11 rn 02/24 12:55 Order name: EKG - Nurse/Tech; Complete Time: 13:23 rn Administered Medications: No medications were administered Disposition Summary: 02/24/23 16:38 Discharge Ordered Notes: Location: Home rn Problem: new rn Symptoms: have improved rn Condition: Stable rn Diagnosis - Rectal bleeding, unspecified rn Followup: rn - With: Private Physician - When: As needed - Reason: Recheck today's complaints, Re-evaluation by your physician Discharge Instructions: - Discharge Summary Sheet rn - Rectal Bleeding rn Forms: - Medication Reconciliation Form rn - Thank You Letter rn - Antibiotic staff attorney - Prescription Opioid Use rn - Patient Portal Instructions rn - Leadership Thank You Letter rn Signatures: Dispatcher [employer] EDPapi Black MD MD rn Margoth Philippe RN RN hb Corrections: (The following items were deleted from the chart) 12 12:54 PSHx: AAA; hb hb 14:47 14:39 [facility] Consultation ordered. JAYDE DONOHUE
--- NOTE | 2023-02-24 16:39 | ER ---
Nurse's Notes [facility] Name: Shereen Gage Age: 67 yrs Sex: Female : 1955 Arrival Date: 02/24/2023 Time: 12:23 Bed 17 Private MD: Diagnosis: Rectal bleeding, unspecified Presentation: 02/24 12:51 Chief complaint: Bright and dark red rectal bleeding and abdominal pain x 3 days. hb Hospitalized 2 moths ago for GI bleed and required 6 units of blood, has had 2 colonoscopies since then and had several polyps removed but otherwise all clear. Coronavirus screen: At this time, the client does not indicate any symptoms associated with coronavirus-19. Ebola Screen: No symptoms or risks identified at this time. Initial Sepsis Screen: Does the patient meet any 2 criteria? No. Patient's initial sepsis screen is negative. Does the patient have a suspected source of infection? No. Patient's initial sepsis screen is negative. Risk Assessment: Do you want to hurt yourself or someone else? Patient reports no desire to harm self or others. Onset of symptoms was February 21, 2023. 12:51 Method Of Arrival: Ambulatory hb 12:51 Acuity: MONSTER 3 hb Historical: - Allergies: 12:54 No Known Allergies; hb - Home Meds: 12:59 escitalopram oxalate 20 mg oral tablet nightly [Active]; carvedilol 25 mg oral tablet hb three times a day [Active]; digoxin 250 mcg (0.25 mg) Oral tablet daily [Active]; lisinopril 10 mg Oral tablet daily [Active]; Lasix 40 mg Oral tablet 2 times per day [Active]; spironolactone 25 mg Oral tablet 2 times per day [Active]; Xarelto 20 mg oral tablet daily [Active]; aspirin 81 mg Oral tablet,chewable [Active]; - PMHx: 12:54 Anemia; GI Bleed; Atrial fibrillation; CHF; Hypertension; hb - PSHx: 12:54 Ankle - Right; Tonsillectomy; AAA Repair; hb - Immunization history:: Adult Immunizations up to date. - Social history:: Smoking status: Patient denies any tobacco usage or history of. - Family history:: not pertinent. - Hospitalizations: : No recent hospitalization is reported. Screenin:33 [facility] ED Fall Risk Assessment (Adult) History of falling in the last 3 months, cp4 including since admission No falls in past 3 months (0 pts) Confusion or Disorientation No (0 pts) Intoxicated or Sedated No (0 pts) Impaired Gait No (0 pts) Mobility Assist Device Used No (0 pt) Altered Elimination No (0 pt) Score/Fall Risk Level 0 - 2 = Low Risk Oriented to surroundings, Maintained a safe environment, Educated pt \T\ family on fall prevention, incl call for assistance when getting out of bed, Assessed \T\ reinforced patient's understanding of fall precautions, Hourly rounding (assess needs \T\ fall precautionary measures) done. Abuse screen: Denies threats or abuse. Nutritional screening: No deficits noted. Tuberculosis screening: No symptoms or risk factors identified. Assessment: 14:33 General: Appears in no apparent distress. Behavior is calm, cooperative, appropriate cp4 for age. Pain: Denies pain. Vital Signs: 12:51 BP 120 / 88; Pulse 89; Resp 16; Temp 98.3(O); Pulse Ox 96% on R/A; Weight 90.72 kg; hb Height 5 ft. 7 in. ; Pain 6/10; 15:00 BP 107 / 68; Pulse 67; Resp 18; Pulse Ox 100% ; cp4 16:00 BP 95 / 46; Pulse 74; Resp 18; Pulse Ox 100% ; cp4 16:35 BP 115 / 58; Pulse 64; Resp 18; Pulse Ox 99% ; cp4 16:35 BP 115 / 58; rn 12:51 Body Mass Index 31.32 (90.72 kg, 170.18 cm) hb 12:51 Pain Scale: Adult hb ED Course: 12:28 Patient arrived in ED. ts1 12:28 Papi Phoenix MD is Attending Physician. rn 12:50 Nohemi Webb is Primary Nurse. cp4 12:54 Triage completed. hb 13:01 Arm band placed on. hb 13:11 Inserted saline lock: 18 gauge in right antecubital area, using aseptic technique. ds4 Blood collected. 14:00 CT Abd/Pelvis - IV Contrast Only In Process Unspecified. EDMS 14:33 Bed in low position. Call light in reach. Side rails up X 1. cp4 14:33 No provider procedures requiring assistance completed. cp4 16:52 Provided Education on: rectal bleeding. cp4 16:52 intact, bleeding controlled, No redness/swelling at site. Pressure dressing applied. cp4 Administered Medications: No medications were administered Medication: 14:33 VIS not applicable for this client. cp4 Outcome: 16:38 Discharge ordered by . rn 16:52 Discharged to home ambulatory, cp4 16:52 Condition: stable 16:52 Discharge instructions given to patient, Instructed on discharge instructions, follow up and referral plans. Demonstrated understanding of instructions, follow-up care, 16:54 Patient left the ED. cp4 Signatures: Dispatcher [employer] EDMS Papi Phoenix MD MD rn Swanson, Donovan ds4 Margoth Philippe RN RN hb Simpson, Tanya, DASHA PAS ts1 Nohemi Webb cp4 Corrections: (The following items were deleted from the chart) 12:59 12:54 PSHx: AAA; hb hb
[2023-02-24 17:18] VITALS: TEMP 98.3
[2023-02-24 17:25] VITALS: BP 115/58; O2SAT 99
== END ==
LOC: ER 12:23
DX: K62.5 Hemorrhage of anus and rectum (principal); I10 Essential (primary) hypertension; I48.91 Unspecified atrial fibrillation; Z79.01 Long term (current) use of anticoagulants; I50.9 Heart failure, unspecified; Z79.82 Long term (current) use of aspirin
CPT/HCPCS: 93005; 85025; 36415; 86900; 86850; 85610; 86870; 86901; 83605; 85730; 85018; 83690; 80053; 74177; 99284; Q9967